=== PATIENT | female | born 1965 | race Caucasian/White ===

== ENCOUNTER 2020-02-09 08:57 | Outpatient (REF) | payer OTHER, SELFPAY ==
--- NOTE | 2020-02-09 09:02 | MM_ITS ---
EXAMINATION: MM SCREENING DIGITAL BREAST TOMOSYNTHESIS, BILATERAL CLINICAL INFORMATION: Screening. Asymptomatic. The lifetime risk of breast cancer based on the Tyrer-Cuzick Model is 11%. COMPARISON: Mammography: 02/03/2019, 12/30/2017, 12/04/2016; MR breasts 07/13/2018. TECHNIQUE: Digital breast tomosynthesis is performed in both the craniocaudal and mediolateral oblique views along with computer-aided detection (CAD). Synthesized 2D images are generated from the tomosynthesis. FINDINGS: There are scattered areas of fibroglandular density (ACR BI-RADS breast composition Category b). There are no significant masses, abnormal calcifications, or other abnormalities. There is a macrolobulated nodule central 9:00 right breast stable to slightly decreased since 2017. No significant changes from prior exams. MM/MM tomosynthesis screening BI IMPRESSION: No significant changes from prior studies. ASSESSMENT: BI-RADS 2: Benign RECOMMENDATION: Routine annual mammography screening. This patient's information was entered into a reminder system with a target due date for their next mammogram.
== END 2020-02-09 08:58 | disposition home or self-care (01) ==
LOC: HO.MAMMO 08:57
PROVIDERS: PCP Internal Medicine; Visit Provider Internal Medicine
DX: Z12.31 Encounter for screening mammogram for malignant neoplasm of breast (principal)
CPT/HCPCS: 77063; 77067

== ENCOUNTER 2021-02-13 15:10 | Outpatient (REF) | payer OTHER, SELFPAY ==
--- NOTE | ~2021-02-13 | MM_ITS ---
EXAMINATION: MM SCREENING DIGITAL BREAST TOMOSYNTHESIS, BILATERAL CLINICAL INFORMATION: Screening. Asymptomatic. The lifetime risk of breast cancer based on the Tyrer-Cuzick Model is 17.2%. COMPARISON: Mammography: February 09, 2020 and studies dating back to November 13, 2015 TECHNIQUE: Digital breast tomosynthesis is performed in both the craniocaudal and mediolateral oblique views along with computer-aided detection (CAD). Synthesized 2D images are generated from the tomosynthesis. FINDINGS: There are scattered areas of fibroglandular density (ACR BI-RADS breast composition Category b). There are no significant masses, abnormal calcifications, or other abnormalities. MM/MM tomosynthesis screening BI IMPRESSION: There are no significant changes from prior study. ASSESSMENT: BI-RADS 1: Negative RECOMMENDATION: Routine annual mammography screening. This patient's information was entered into a reminder system with a target due date for their next mammogram.
== END 2021-02-13 15:11 | disposition home or self-care (01) ==
LOC: HO.MAMMO 15:10
PROVIDERS: PCP Internal Medicine; Visit Provider Internal Medicine
DX: Z12.31 Encounter for screening mammogram for malignant neoplasm of breast (principal)
CPT/HCPCS: 77063; 77067

== ENCOUNTER 2022-02-24 09:10 | Outpatient (REF) | payer BC, SELFPAY ==
--- NOTE | ~2022-02-24 | MM_ITS ---
EXAMINATION: MM SCREENING DIGITAL BREAST TOMOSYNTHESIS, BILATERAL CLINICAL INFORMATION: Screening. Asymptomatic. The lifetime risk of breast cancer based on the Tyrer-Cuzick Model is 19.7%. COMPARISON: Mammography: February 13, 2021 and studies dating back to February 12, 2016 TECHNIQUE: Digital breast tomosynthesis is performed in both the craniocaudal and mediolateral oblique views along with computer-aided detection (CAD). Synthesized 2D images are generated from the tomosynthesis. FINDINGS: The breasts are almost entirely fatty (ACR BI-RADS breast composition Category a). There are no significant masses, abnormal calcifications, or other abnormalities. MM/MM tomosynthesis screening BI IMPRESSION: No significant changes from prior exam. ASSESSMENT: BI-RADS 1: Negative RECOMMENDATION: Routine annual mammography screening. This patient's information was entered into a reminder system with a target due date for their next mammogram.
== END 2022-02-24 09:11 | disposition home or self-care (01) ==
LOC: HO.MAMMO 09:10
PROVIDERS: PCP Internal Medicine; Visit Provider Internal Medicine
DX: Z12.31 Encounter for screening mammogram for malignant neoplasm of breast (principal)
CPT/HCPCS: 77063; 77067

== ENCOUNTER → 2022-03-09 15:50 | Outpatient (BNVA) | payer BC, SELFPAY | PROVIDERS: PCP Internal Medicine; Visit Provider Surgery | DX: Z13.89 Encounter for screening for other disorder (principal) ==

== ENCOUNTER → 2022-04-22 09:04 | Outpatient (BNVA) | payer BC, SELFPAY | PROVIDERS: PCP Internal Medicine; Visit Provider Surgery | DX: Z13.89 Encounter for screening for other disorder (principal) ==

== ENCOUNTER 2023-03-11 15:46 | Outpatient (REF) | payer OTHER, SELFPAY | END 2023-03-11 15:47 | disposition home or self-care (01) | LOC: HO.MAMMO 15:46 | PROVIDERS: PCP Student in an Organized Health Care Education/Training Program; Visit Provider Student in an Organized Health Care Education/Training Program | DX: Z12.31 Encounter for screening mammogram for malignant neoplasm of breast (principal) | CPT/HCPCS: 77063; 77067 ==

== ENCOUNTER → 2023-03-11 16:00 | Outpatient (BNV) | payer OTHER, SELFPAY | PROVIDERS: PCP Student in an Organized Health Care Education/Training Program; Visit Provider Radiology Diagnostic Radiology | DX: Z12.31 Encounter for screening mammogram for malignant neoplasm of breast (principal) | CPT/HCPCS: 77063; 77067 ==

== ENCOUNTER 2024-03-27 13:57 | Outpatient (REF) | payer OTHER, SELFPAY ==
--- OUTSIDE RECORDS SUMMARY | 2024-03-27 18:30 | XMS_ITS ---
Author Organization [facility] Address [address] [place] [address] Care Team Providers Care In House Cra Name Role Phone Luciana Ibarra Primary Care Provider Unavail able Elvis Prakash Unavailable [phone] Steffi Horton Unavailable [phone] Allergies Allergen (clinical drug ingredient) Drug/Non Drug Allergy documented on EMR Reaction Allergy Type Onset Date Status sulfamethoxazole / trimethoprim Bactrim rash, hives Drug Allergy Active Adhesive rash Allergy Active codeine Codeine nausea and vomiting Drug Allergy Active Penicillin rash, hives Drug Allergy Acti ve vibegron Gemtesa red face Drug Allergy Active REASON FOR VISIT PCP - 11/2022, Painful Toe(s) Medications Medication SIG (Take, Route, Frequency, Duration) Notes Start Date End Date Status Omeprazole 20 MG 1 capsule Orally Onc e a day Active Trospium Chloride ER 60 MG Oral for 30 Days Active Aspir-81 81 MG 1 tablet Orally Once a day Unknown ProAir HFA Unknown Doxycycline Monohydrate 100 MG 1 capsule Orally Twice a day for 5 days 01/19/2023 Active flonase 50 mcg/act A ctive Glucosamine Chond Complex/MSM - Orally Unknown Social History Tobacco Use: Social History Observation Description Date Details (start date - stop date) Never Smoker NA - NA Tobacco Use/Smoking Question Answer Notes Are you a: nonsmoker Additional Findings: Tobacco Non-User Current no n-smoker Alcohol Screen Question Answer Notes Did you have a drink contain ing alcohol in the past year? Yes How often did you have a dri nk containing alcohol in the past year? Monthly or less (1 point) Points 1 Interpretation Negative Tobacco use other than smoking: Question Answer Notes Are you an other tobacco user? No Vital Signs Blood pressure systolic 110 mm Hg 01/27/20 23 Blood pressure diastolic 70 mm Hg 023 Height 5ft 4in in 01/26/2023 Weight 232 lbs 01/26/2023 BMI 39.82 kg/m2 01/26/2023 Encounters Encounter Location Date Provider Diagnosis [facility] [address] [place] [address] 01/26/2023 Steffi Horton Contracture of toe of right foot M20.5X1 Assessments Encounter Date Diagnosis (ICD Code) Assessment Notes Treatment Notes Treatment Clinical Notes Section Notes 01/26/2023 Contracture of toe of right foot (ICD-10 - M20.5X1) Plan Of Treatment Next Appt Details Follow Up: prn, Reason: Procedure Notes * Category Sub-Category Detail Notes Dressing Change: Type: bandaide Topical: bacitacin applied Removal of: sutures performed wi th sterile forceps/suture scissors or #15 blade, area cleaned with alcohol prior to removal Progress Notes * Danika CABRERA MDOB: [birth year] (57 yo F)Acc No.[id number]:01/26/2023 Patient:?Danika Cabrera M Provider:?Steffi Horton DPM :1965???Age:57 Y???Sex:Female D ate:01/26/2023 Address:[address] [place] [id number] Pcp:Luciana Norris Subjective: * Chief Complaints: * ???PCP - ainful Toe( s) * HPI: ???Toe pain:?Treatments:?Extensor tenotomy.? * ROS:?General/Constitutional:?Nausea?denies.?Vomiting?denies.?Hunger Thirst?denies.?Loss appetite?denies.?Chills?denies.?Fatigue?denies.?Fever?denies.?Night Sweats?denies.?Unexplained weight loss?denies.?Unexplained weight gain?denies.?HEENTM:?Dentures?denies.?Dizziness?denies.?Glasses/contacts?admits.?Retinopathy?de nies.?Blurred/double vision?denies.?TMJ?denies.?Discharge/drainage?denies.?Implants?denies.?Sore throat?denies.?Dental implants?denies.?Hard of hearing ?denies.?Difficulty chewing/swallowing/speaking?denies.?Nose bleeds?denies.?Sore mouth?denies.?Respiratory:?On Oxygen?denies.?Pneumonia/pleurisy?denies.?Bronchitis?denies.?Emphysema?denies.?C oughing?denies.?Cough blood?denies.?Shortness of breath?denies.?Wheezing?denies.?Cardiovascular:?Pacemaker?denies.?MVP?denies.?WPW?denies.?CHF?denies.?Heart attack?denies.?Septal defect?denies.?Rapid beat?denies.?Chest pain ?denies.?Atrial Fib.?denies.?Murmur/Palpitations?denies.?Gastrointestinal:?Hemorrhoids?denies.?Stomach/Abdominal pain?denies.?Dark blood stool?denies.?Irritable bowel ?denies.?Constipation?denies.?Diarrhea?denies.?Hematology:?Swelling?denies.?Clots?denies.?Varicose Veins?admits.?Bruising?denies.?Bleeding problem?denies.?Genitourinary:?Blood urine?denies.?Frequent/Painfu/urination/bladder control?denies.?Kidney stones?denies.?Infection (UTI)?denies.?Nephropathy?denies.?sex trans dis (STD)?denies.?Prostate?denies.?Musculoskeletal:?Hammertoes?admits.?Bunions?denies.?Back Pain?admits.?Muscle Cramps/ Resting?denies.?Muscle cramps / walking?denies.?Generalized aches and pains?denies.?Weakness?denies.?Integ.:?Mitchell?denies.?Scars?admits.?Corns/calluses?denies.?Ingrown nails?denies.?Painful nails?denies.?Open Sores?denies.?Rashes?denies.?Neurologic:?Difficulty sleeping?denies.?Brain disorder?denies.?Numbness?denies.?Balance trouble?denies.?Confusion?denies.?Fainting/blackouts?denies.?Tingling?denies.?Tr emors?denies.? * Medical History:? * Surgical History:?cholecyste ctomy 2001ankle surgery- Left, due to Fracture 05/2010removal of pins to left ankle 2011dilatation of esophagas gall bladder right knee replacement 08/14/2021left knee replacement 09/24/2021rthroscopic knee surgery 06/30/22 * Hospitalization/Major Diagno stic Procedure:?childbirth x2 * Family History:?Mother: dece ased, diagnosed with Other malignant neoplasm of unspecified site.?Father: , stroke, diagnosed with Family history of arthritis, Unspecified essential hypertension. Siblings: Heart attack, diagnosed with Other malignant neoplasm of unspecified site.?Spouse: alive.? * Social History:?Tobacco Use:?Tobacco Use/Smoking?Are you a:?nonsmoker ?Additional Findings: Tobacco Non-User?Current non-smoker ?Tobacco use other than smoking?Are you an other tobacco user??No ???Drugs/Alcohol:?Drugs?Have you used drugs other than those for medical reasons in the past 12 months??No ?Alcohol Screen?Did you have a drink containing alcohol in the past year??Yes ?How often did you have a drink containing alcohol in the past year??Monthly or less (1 point) ?Points?1 ?Interpretation?Negative ???Miscellaneous:?Caffeine: yes, 2-3 cups per day tea. ?Children: yes, 2. ?Exercise: yes, bike riding, swimming, walking. ?Living with: spouse. ?Marital status: . 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 * Medications:?Takingflonase 5 0 mcg/act nasal spray Trospium Chloride ER 60 MG Capsule Extended Release 24 Hour Oral Omeprazole 20 MG Capsule Delayed Release 1 capsule Orally Once a dayDoxycycline Monohydrate 100 MG Capsule 1 capsule Orally Twice a dayTaking flonase 50 mcg/act nasal spray Taking Trospium Chloride ER 60 MG Capsule Extended Release 24 Hour Oral Taking Omeprazole 20 MG Capsule Delayed Release 1 capsule Orally Once a dayTaking Doxycycline Monohydrate 100 MG Capsule 1 capsule Orally Twice a dayUnknownProAir HFA Aspir-81 81 MG Tablet Delayed Release 1 tablet Orally Once a dayGlucosamine Chond Complex/MSM - Tablet Orally Medication List reviewed and reconciled with the patientUnknown ProAir HFA Unknown Aspir-81 81 MG Tablet Delayed Release 1 tablet Orally Once a dayUnknown Glucosamine Chond Complex/MSM - Tablet Orally Medication List reviewed and reconciled with the patient * Allergies:?Gemtesa: red face Penicillin: rash, hives - AllergyBactrim: rash, hives - AllergyCodeine: nausea and vomiting - AllergyAdhesive: rash - Allergyyes[Allergies Verified] Objective: * Vitals:?Ht: 5ft 4in, Wt:232, BMI:39.82, Shoe size: 9.5, BP:110/70 mm Hg, Ht-cm: 162.56 cm, Wt-k.23 kg. * Examination: ???Orthopedic: ?DIGITAL DEFORMITIES:?NO FURTHER,MPJ Contracture/Dorsal sublux. NOW WELL REDUCED with MPJ? in rectus position with push up test, incision site, healed 2nd right.? Assessment: * Assessment: 1.?Contracture of toe of rig ht foot - M20.5X1 (Primary)? Plan: * Treatment: * Procedures:?Dressing Change::?Type:?bandaide.?Topical:?bacitacin applied.?Removal of:?sutures performed with sterile forceps/suture scissors or #15 blade, area cleaned with alcohol prior to removal.? * Procedure Codes:? * Preventive Medicine:? ??Counseling:?Post-op:?I reviewed with the patient the usual surgical post-op course. The patient is to call with any questions/complications, and will follow-up as needed, return to accom firm-soled shoe for stability and support, gradually increase activity to tolerance, Pt can begin showering per usual starting tomorrow, can apply abx ointment to incisions to help with scarring, Pt to continue to ice and elevate foot to help with post op swelling and pain.? * Follow Up:?prn * Images: * Sign off status: Completed true * Provider:?Steffi Horton DPM Date:? Generated for Stew mccabe/Moiz/Vilma on:?03/27/2024 06:30 PM EST History and Physical Notes * HPI (History of Present Illness) Category Sub-Category Detail Notes Category Not es Toe pain Treatments: Extensor tenotomy Examination Category Sub-Category Detail Notes Category Not es Orthopedic DIGITAL DEFORMITIES: NO FURTHER, MPJ Contracture/Dorsal sublux. NOW WELL REDUCED with MPJ in rectus position with push up test, incision site, healed 2nd right
--- OUTSIDE RECORDS SUMMARY | 2024-03-27 18:30 | XMS_ITS | Continuity of Care Document ---
Author Organization [facility] Address [address] [place] [address] Phone Care Team Providers Care Counter Stacker Name Role Phone Stew PETERSON, RVT, RPVI, Javier Unavailable U navailable Allergies, Adverse Reactions, Alerts Substance Reaction Status Criticality vibegron Active No Information codeine Active No Information Sulfa (Sulfonamide Antibiotics) Active No Information PENICILLIN Active No Information Procedures Procedure Date Office/Outpt E&M Established 15 Mins Apr Duplex Scan-extrem Veins; Comp 24 Duplex Scan-extrem Veins; Uni/ 24 Inj Scleros Solut; Mx Veins 1 4 Ultrason Guidan Needle Bx-rad 4 Duplex Scan-extrem Veins; / 24 Endovenous Laser, 1st Vein Endovenous Laser, 1st Vein Duplex Scan-extrem Veins; Uni/ 24 Duplex Scan-extrem Veins; Uni/ 24 Inj Scleros Solut; Mx Veins 1 4 Ultrason Guidan Needle Bx-rad 4 Duplex Scan-extrem Veins; Uni/ 24 Endovenous Laser, 1st Vein Endovenous Laser, 1st Vein Offic/outpt E&m Estab 5 Min Trial - Tele medicine Offic Cons New/estab Mod-hi 60 Duplex Scan-extrem Veins; Comp Advance Directives Directive Yes / No Effective Date File Name No Information Encounters Encounter Description Practice Location Reason(s) For Visit Diagnoses Date Provider Providers Copied on Encounter Office/Outpt E&M Established 15 Mins [facility] MD [facility], [address] [place] [address] Dr Abbasi [address], [id number], [place] tel:[phone] [place] Venous insufficiency (chronic) (peripheral) 4 Stew PETERSON RVT, JON Herrera. [address] [place] [address], [address], [place], [id number], [place]. tel:[phone] Referring Provider: Miguel Bustos PA-C, [address] [place] [address] [address], [place], [address]. tel:[phone] [facility] MD [place], [address] [place] [address] Dr Abbasi [address], [place], [id number], [place] tel:[phone] [facility] Chronic venous hypertension (idiopathic) with other complications of bilateral lower extremity 4 Stew PETERSON RVT, JON Herrera. [address] [place] [address], [address], [place], [id number], [place]. tel:[phone] Referring Provider: Miguel Bustos PA-C, [address] [place] [address] [address], [place], [address]. tel:[phone] [facility] MD [place], [address] [place] [address] Dr Abbasi [address], [id number], [place] tel:[phone] [place] Encounter for follow-up examination after completed treatment for conditions other than malignant neVaricose veins of left lower extremity with pain 4 Stew PETERSON RVT, JON Herrera. [address] [place] [address], [address], [place], [id number], [place]. tel:[phone] Referring Provider: Miguel Bustos PA-C, [address] [place] [address] [address], [place], [address]. tel:[phone] [facility] MD [place], [address] [place] [address] Dr Abbasi [address], [id number], [place] tel:[phone] [place] - [place] Varicose veins of left lower extremity with other complications 4 Peter Pereira. [address] [facility] [address], [place], [id number], [place]. tel:[phone] Referring Provider: Miguel Bustos PA-C, [address] [place] [address] [address], [place], [address]. tel:[phone] [facility] MD [place], [address] [place] [address] Dr Abbasi [address], [id number], [place] tel:[phone] [place] Encounter for follow-up examination after completed treatment for conditions other than malignant neChronic venous hypertension (idiopathic) with other complications of left lower extremity 4 Stew PETERSON RVT, JNO Herrera. [facility] [employer] [address], [place], [id number], [place]. tel:[phone] Referring Provider: Miguel Bustos PA-C, [address] [place] [address] [address], [place], [address]. tel:[phone] [facility] MD [place], [address] [place] [address] Dr Ababsi 1000Suite Jeana Vo MD, [id number], [place] tel:[phone] [place] Varicose veins of left lower extremity with other complications 4 Stew PETERSON RVT, JON Herrera. [address] [place] [address] [address], [place], [id number], [place]. tel:[phone] Referring Provider: Miguel Bustos PA-C, [address] [place] [address] [address], [place], [address]. tel:[phone] [facility] MD [place], [address] [place] [address] Dr Abbasi 1000[address]Jeana [place], [id number], [place] tel:[phone] [place] Varicose veins of left lower extremity with other complications 4 Stew PETERSON RVT, JON Herrera. [facility], [address], [place], [id number], [place]. tel:[phone] Referring Provider: Miguel Bustos PA-C, [address] [place] [address] [address], [place], [address]. tel:[phone] [facility], [address] [place] [address] 1000[address] 1000Jeana [place], [id number], [place] tel:[phone] [place] Encounter for follow-up examination after completed treatment for conditions other than malignant neChronic venous hypertension (idiopathic) with other complications of right lower extremity 4 Stew PETERSON RVT, JON Herrera. [address] [place] [address], [address], [place], [id number], [place]. tel:[phone] Referring Provider: Miguel Bustos PA-C, [address] [place] [address] [address], [place], [address]. tel:[phone] [facility], [address] [place] [address] 1000[address] 1000Jeana [place], [id number], [place] tel:[phone] [place] No Information 4 Robert Sousa. [address] [place] [address], [address], [place], [address], [place]. tel:[phone] Referring Provider: Miguel Bustos PA-C, [address] [place] [address] [address], [place], [address]. tel:[phone] [facility], [address] [place] [address] 1000[address] 1000Jeana [place], [id number], [place] tel:[phone] [place] Encounter for follow-up examination after completed treatment for conditions other than malignant neVaricose veins of right lower extremity with pain 4 Stew PETERSON RVT, RPVI Robert. [address] [place] [address] 302, [place], [id number], [place]. tel:[phone] Referring Provider: Miguel Bustos PA-C, [address] [place] [address] [address], [place], [address]. tel:[phone] [facility], [address] [place] [address] 1000[address] 1000Jeana [place], [id number], [place] tel:[phone] [place] Varicose veins of right lower extremity with other complications 4 Stew PETERSON RVT, JON Herrera. [address] [place] [address], [address], [place], [id number], [place]. tel:[phone] Referring Provider: Miguel Bustos PA-C, [address] [place] [address] [address], [place], [address]. tel:[phone] [facility], [address] [place] [address] 1000[address] 1000Jeana [place], [id number], [place] tel:[phone] [place] Encounter for follow-up examination after completed treatment for conditions other than malignant neVaricose veins of right lower extremity with pain 4 Stew PETERSON RVT, JON Herrera. [address] [place] [address], [address], [place], [id number], [place]. tel:[phone] Referring Provider: Miguel Bustos PA-C, [address] [place] [address] [address], [place], [address]. tel:[phone] [facility], [address] [place] [address] 1000[address] 1000Jeana [place], [id number], [place] tel:[phone] [place] Chronic venous hypertension (idiopathic) with inflammation of right lower extremity 4 Stew PETERSON RVT, JON Herrera. [address] [place] [address], [address], [place], [id number], [place]. tel:[phone] Referring Provider: Miguel Bustos PA-C, [address] [place] [address] [address], [place], [address]. tel:[phone] [facility], [address] [place] [address] [facility] [address] [address], [place], [id number], [place] tel:[phone] [place] Chronic venous hypertension (idiopathic) with inflammation of right lower extremity 4 Stew PETERSON, RVT, JON Herrera. [address] [place] [address] 302, [place], [id number], [place]. tel:[phone] Referring Provider: Miguel Bustos PA-C, [address] [place] [address] Suite [facility], [place], [address]. tel:[phone] Offic/outpt E&m Estab 5 Min Trial - Telemedicine [facility], [address] [place] [address] Dr Abbasi [address] [place], [place] [address]Je[place], [id number], [place] tel:[phone] [place] Localized edemaRestless legs syndromeVenou s insufficiency (chronic) (peripheral)P ruritus, unspecified 3 Peter Pereira. [address] [place] [address] 302, [place], [id number], [place]. tel:[phone] Referring Provider: Miguel Bustos PA-C, [address] [place] [address], [place], [address]. tel:[phone] Offic Cons New/estab Mod-hi 60 [facility], [address] [place] [address] [facility] 1000[address] 1000Jeana [place], [id number], [place] tel:[phone] [place] Varicose veins of bilateral lower extremities with other complications Pain in right lower legPain in left lower legLocalized edemaRestless legs syndromePruri tus, unspecified 3 Robert PETERSON FACS RVT JON Sousa. [address] [place] [address], [address], [place], [address], [place]. tel:[phone] Referring Provider: Miguel Bustos PA-C, [address] [place] [address] [address], [place], [address]. tel:[phone] [facility], [address], [place], [id number], [place] tel:[phone] [place] Chronic venous hypertension (idiopathic) with other complications of bilateral lower extremity Robert PETERSON FACS RVT JON Sousa. [address] [facility], [address], [place], [address], [place]. tel:[phone] Referring Provider: Miguel Bustos PA-C, [address] [facility] [address], [place], [address]. tel:[phone] Family History Family Member Type Diagnosis Age At Onset No Information Payers Payer name Insurance type Covered alliance party ID Lisa fitzgerald([employer] [facility] [id number] Social History Type Description Quantity Date Captured Comments Alcohol Use Details Unknown Caffeine Use Details Unknown Tobacco Use Status Current non-smoker Smoking Status Never Smoker Non-Smoking Tobacco Use Details : No Details Available : No Details Available Sex Female Vital Signs Date / Time: Height Weight BMI Pulse Rate Blood Pressure Temperature Respiratory Rate Body Surface Area Head Circumference Head Circ. Percentile Wt./Thomas. Percentile BMI percentile Pulse Ox Inhaled Ox 105.230 kg (232.00 lbs) 39.9 0 kg/m eter (2) 136/90 mm[Hg] Chief Complaint And Reason For Visit No Information Reason For Referral Reason For Referral No Information Plan Of Treatment Date Type Action Status Goal Diet education completed Goal Diet education completed Goal Diet education completed Goal Diet education completed Referral Ordered: Miguel Bustos PA-C timeframe: 3 Months (related to Essential (primary) hypertension) ordered Referral Ordered: Weight management: Referral to physician timeframe: 3 Months (related to Body mass index (BMI) 39.0-39.9, adult) ordered Referral Ordered: Miguel Bustos PA-C timeframe: 3 Months (related to Essential (primary) hypertension) ordered Referral Ordered: Weight management: Referral to physician timeframe: 3 Months (related to Body mass index (BMI) 39.0-39.9, adult) ordered History Of Present Illness Encounter Date Complaint History Of Prese nt Illness No Information Functional Status Date Functional Assessmen t No Information Instructions Date Instruction Additional Infor alexys Diet education Related to Essen tial (primary) hypertension Exercise education Related to Es sential (primary) hypertension Lifestyle education Related to E ssential (primary) hypertension Diet education Related to Body mass index (BMI) 39.0-39.9, adult Giving Encouragement to exercise Related to Body mass index (BMI) 39.0-39.9, adult Lifestyle education Related to B latoya mass index (BMI) 39.0-39.9, adult Patient education booklet given Related to Venous insufficiency (chronic) (peripheral) Patient education booklet given Related to Localized edema Pre and post instruc tions reviewed and provided Related to Localized edema Lifestyle education Related to E ssential (primary) hypertension Diet education Related to Body mass index (BMI) 39.0-39.9, adult Giving Encouragement to exercise Related to Body mass index (BMI) 39.0-39.9, adult Lifestyle education Related to B latoya mass index (BMI) 39.0-39.9, adult Patient education booklet given Related to Varicose veins of bilateral lower extremities with other complications Pre and post instruc tions reviewed and provided Related to Varicose veins of bilateral lower extremities with other complications Diet education Related to Essen tial (primary) hypertension Exercise education Related to Es sential (primary) hypertension Assessments Type Assessment Date No Information Patient Care Teams Name Effective Dates (start - stop) Status Members No Information
--- OUTSIDE RECORDS SUMMARY | 2024-03-27 18:30 | XMS_ITS ---
Author Organization [facility] Address [address] [place] [address] Care Team Providers Care Pharmacist Per Diem Name Role Phone Luciana Ibarra Primary Care Provider Unavail able Elvis Prakash Unavailable [phone] Steffi Horton Unavailable [phone] REASON FOR VISIT buy Med Post OP Shoe Encounters Encounter Location Date Provider Diagnosis [facility] [address] [place] [address] 01/19/2023 Steffi Horton Plan Of Treatment No Information Progress Notes * Danika CABRERA MDOB: [birth year] (57 yo F)Acc No.[id number]:01/19/2023 Patient:?Danika Cabrera :1965???Age:57 Y???Sex:Female Address:[address] [place], [address] * true * Date:? Generated for Maryjanei estelle/Moiz/eTransmitting on:?03/27/2024 06:30 PM EST
--- OUTSIDE RECORDS SUMMARY | 2024-03-27 18:30 | XMS_ITS | Patient Health Record ---
Author Organization [facility] Address [address] [facility] [place] [address] Care Team Providers Care Prototype Engineer Name Role Phone Luciana Ibarra Primary Care Provider Unavail able Elvis Prakash Unavailable [phone] Allergies Allergen (clinical drug ingredient) Drug/Non Drug Allergy documented on EMR Reaction Allergy Type Onset Date Status sulfamethoxazole / trimethoprim Bactrim rash, hives Drug Allergy Active Adhesive rash Allergy Active codeine Codeine nausea and vomiting Drug Allergy Active Penicillin rash, hives Drug Allergy Acti ve vibegron Gemtesa red face Drug Allergy Active Reason For Referral No Information Medications Medication SIG (Take, Route, Frequency, Duration) Notes Start Date End Date Status Glucosamine Chond Complex/MSM - Orally Unknown Doxycycline Monohydrate 100 MG 1 capsule Orally Twice a day for 5 days 01/19/2023 Not-Taking Omeprazole 20 MG 1 capsule Orally Onc e a day Active Aspir-81 81 MG 1 tablet Orally Once a day Unknown ProAir HFA Unknown Trospium Chloride ER 60 MG Oral for 30 Days Active flonase 50 mcg/act A ctive Social History Tobacco Use: Social History Observation Description Date Details (start date - stop date) Never Smoker NA - NA Tobacco use other than smoking: Question Answer Notes Are you an other tobacco user? No Tobacco Control (Standard) Question Answer Notes Tobacco use: Nonsmoker Additional Findings: Tobacco non-user Current no nsmoker AUDIT-C (Standard) Question Answer Notes Did you have a drink contain ing alcohol in the past year? Yes How often did you have six o r more drinks on one occasion in the past year? Never (0 point) How many drinks did you have on a typical day when you were drinking in the past year? 1 or 2 drinks (0 point) How often did you have a dri nk containing alcohol in the past year? Monthly or less (1 point) Points 1 Interpretation Negative Problems Problem Type SNOMED Code ICD Code Onset Dates Problem Status W/U Status Risk Notes Problem Acquired hammer toe of right foot (2271343059254 105) Other hammer toe(s) (acquired), right foot (M20.41) Active confirmed Problem Acquired hammer toe of left foot (3555668459792 103) Other hammer toe(s) (acquired), left foot (M20.42) Active confirmed Vital Signs Blood pressure diastolic 74 mm Hg 03/14/2024 Height 5ft 4in in 03/14/2024 Blood pressure systolic 98 mm Hg 03/14/2024 Weight 183 lbs 03/14/2024 BMI 31.41 kg/m2 03/14/2024 Encounters Encounter Location Date Provider Diagnosis [facility] [address] [place] [address] 03/14/2024 Elvis Prakash Pain in right foot M79.671 and Tailor's bunion of right foot M21.621 Assessments Encounter Date Diagnosis (ICD Code) Assessment Notes Treatment Notes Treatment Clinical Notes Section Notes 03/14/2024 Pain in right foot (ICD-10 - M79.671) 03/14/2024 Tailor's bunion of right foot (ICD-10 - M21.621) Acute problem, Uncomplicated (3) Plan Of Treatment Pending Test Test Name Order Date X ray : Foot, left 3V 10/27/2017 X ray : Foot, right 3V 11/17/2022 X ray : Foot, right 3V 10/27/2017 [id number] 12/08/2012 91351- Debride <25 sq cm 12/21/2012 50272- Debride <25 sq cm 03/31/2012 94339 I&D ABSCESS- SIMPLE,SINGLE 013 Insurance Providers Payer Name Payer Address Payer Phone Subscriber Number Group Number Insured Name Patient Relationship to Insured Coverage Start Date Coverage End Date [facility] [address] [facility] [place] [phone] [id number] Danika Can Self - patient is the insured Medical (General) History Medical History History ICD Code asthma back, hip, knee pain broken bones chicken pox Headaches/Migraines Hiatal hernia psoriasis reflux sinus conditions Pain in Limb undefined Pain in Limb Paronychia Abscess /Cellulitis Ingrowing Nail Arthritis covid-19 Gall bladder problems Reflux ( GERD) Joint implants/screws Schatzki Ring Surgical History Surgery Date(Month/Year) cholecystectomy 2000 ankle surgery- Left, due to Fracture 2010 removal of pins to left ankle 2011 dilatation of esophagas gall bladder right knee replacement 08/14/2021 left knee replacement 09/24/2021 arthroscopic knee surgery 06/30/22 Hospitalization History Reason Date(Month/Year) childbirth x2
--- OUTSIDE RECORDS SUMMARY | 2024-03-27 18:31 | XMS_ITS | Data Portability ---
Author Organization [facility], Main Office Address [address] [facility] [address] [place] [id number] Care Team Providers Care Stick Puller Name Role Phone CLEOPATRA PEREZ Baggage Checker JERED LOPEZ Fleet Maintenance Foreman LARS DE LEÓN Orthopedic Surgeon RHONDA REGALADO Referring Provider BROOKLYN TURNER General Surgeon JENY DELUCA Public Health Professor KRISTEN MILLER Primary Care Provider Assessment Encounter Date Assessment Date Assessment LastModified by Organization Details LastModified Time 04/08/2023 04/08/2023 Discussed with patient the signs/symptom s warranted for a return to office visit and/or an ER visit. Patient understood and agreed with the plan. Not available 04/08/2023 14:44:05 10/27/2023 10/27/2023 Discussed with patient the signs/symptom s warranted for a return to office visit and/or an ER visit. Patient understood and agreed with the plan. Not available 10/27/2023 14:36:31 Plan of Treatment Reminders Order Date Submit Date Provider Last Modified By Organization Details Last Modified Time Details Appointments None record ed. Lab HbA1c (hemog lobin A1c), blood 2022 023 [facility], [address] [facility], [address], [address], 16:14:36 unlist ed lab - urinal ysis w/refl ex cultur e 2022 023 MARCELO [facility], [address], [place] [address], [place], [address], 3 01:57:44 urinal ysis, dipsti ck 2022 023 MARCELO In-Office Order, Internal Use Only DO Not Attach Compendium DO Not Attach Compendium, Do Not Delete/merge, [id number] 3 10:01:08 CBC w/ auto diff 2022 023 MARCELO [facility], [address], [place] [address], [place], [address], 3 15:39:38 CMP, serum or plasma 2022 023 MARCELO [facility], [address], [place] [address], [place], [address], 3 18:31:59 urinal ysis, dipsti ck 2023 024 MARCELO In-Office Order, Internal Use Only DO Not Attach Compendium DO Not Attach Compendium, Do Not Delete/merge, [id number] 4 14:28:31 [facility] - urinal ysis w/refl ex cultur e 2023 024 MARCELO [facility], [address], [place] [address], [place], [address], 4 05:03:51 CBC w/ auto diff 2023 024 MARCELO [facility], [address] , [facility] [address], [place], [address], 4 06:09:44 TSH + free T4, serum 2023 024 MARCELO [facility], [address], [place] [address], [place], [address], 4 06:09:44 CMP, serum or plasma 2023 024 [facility], [address], [facility] [address], [place], [address], 4 06:09:45 lipid panel, serum 2023 024 [facility], [address], [facility] [address], [place], [address], 4 06:09:46 urinal ysis, dipsti ck 2023 024 In-Office Order, Internal Use Only DO Not Attach Compendium DO Not Attach Compendium, Do Not Delete/merge, [id number] 4 14:59:53 urinal ysis comple te, reflex cultur e 2023 024 [facility], [address] , [place] [address], [place], [address], 4 20:06:22 HbA1c (hemog lobin A1c), blood 2023 024 [facility], [address], [place] [address], [place], [address], 4 06:08:39 CBC 2023 024 [facility], [address], [facility] [address], [place], [address], 4 06:08:39 CMP, serum or plasma 2023 024 [facility], [address], [place] [address], [place], [address], 4 06:08:38 Referral vein specia list referr al 2022 023 [email or web address] Charu Jones MD, [address], [place] [address], [place], [address], 3 11:00:55 physic al therap ist referr al - left sided low back pain 2023 024 [facility] - [address], [address], 4 11:00:25 Procedures None record ed. Surgeries None record ed. Imaging None record ed. Medication Orders Saxend a 3 mg/0.5 mL (18 mg/3 mL) subcut aneous pen inject or 2022 023 [email or web address] [facility], [address] [place], [address], 3 09:21:48 Macrob id 100 mg capsul e 2023 024 [email or web address] [facility], [address] [place], [address], 4 09:08:17 zolpid em 5 mg tablet 2023 024 [facility], [address] [place], [address], 4 09:35:52 cephal exin 500 mg capsul e 2023 024 [email or web address] [facility]1230, [address] [place], [address], 4 14:31:37 flutic asone propio teresa 50 mcg/ac tuatio n nasal spray, suspen lynn 2023 024 [facility], [address] [place], [address], 4 09:18:14 Patient TargetsNo targets recorded. Patient Instructions Encounter Date Encounter Id Patient Instructions Last Modified By Organization Details Last Modified Time 12/24/2022 [id number] leg and ankle edema: care instructions [email or web address] Not available 12/24/2022 09:56:21 Medications (OTC , herbal therapies, supplements) reviewed and reconciled with patient and or caregiver, including potential side effects, drug interactions, instructions, and the consequences of not taking medication. Reviewed potential barriers to medication adherence, such as side effects from medication or cost of medication. [email or web address] Not available 12/24/2022 09:38:22 04/08/2023 [id number] blood in the urine: care instructions Not available 04/08/2023 14:28:55 10/27/2023 [id number] low back pain: exercises Not available 10/27/2023 14:41:10 back care and preventing injuries: care instructions Not available 10/27/2023 14:41:10 Reason for Referral Vein Specialist Referral for Peripheral venous insufficiency Referring Physician: Miguel Bustos, Internal Medicine, Encounter Date: 12/24/2022 Physical Therapist Referral for Low back pain left sided low back pain Referring Physician: Naa Modi, Family Medicine, Encounter Date: 10/27/2023 Results Created Date Observation Date Name Description Value Unit Range Abnormal Flag Note LastModifiedBy Organization Detail LastModifiedTime 12/25/1912/24/2022 COMPL ETE CBC WITH DIFF WBC 4.7 K/mm3 (4.0-1 1.0) Not Available [facility] [address] [place], [address], 12/24/2022 15:39:38 12/25/1912/24/2022 COMPL ETE CBC WITH DIFF RBC 4.80 M/mm3 (4.20- 5.40) Not Available [facility] [address] [place], [address], 12/24/2022 15:39:38 12/25/1912/24/2022 COMPL ETE CBC WITH DIFF HGB 13.5 gm/dL (11.7- 15.5) Not Available [facility] [address] [place], [address], 12/24/2022 15:39:38 12/25/1912/24/2022 COMPL ETE CBC WITH DIFF HCT 44.1 % (35.7- 45.8) Not Available [facility] [address] [place], [address], 12/24/2022 15:39:38 12/25/1912/24/2022 COMPL ETE CBC WITH DIFF MCV 91.9 fL (80.0- 100.0) Not Available [facility] [address] [place], [address], 12/24/2022 15:39:38 12/25/1912/24/2022 COMPL ETE CBC WITH DIFF MCH 28.1 pg (27.0- 34.0) Not Available [facility] [address] [place], [address], 12/24/2022 15:39:38 12/25/1912/24/2022 COMPL ETE CBC WITH DIFF MCHC 30.6 g/dL (33.0- 37.0) low Not Available [facility] [address] [place], [address], 12/24/2022 15:39:38 12/25/1912/24/2022 COMPL ETE CBC WITH DIFF plt 391 K/mm3 (150-4 60) Not Available [facility] [address] [place], [address], 12/24/2022 15:39:38 12/25/1912/24/2022 COMPL ETE CBC WITH DIFF RDW-SD 47.9 fL (<47.0 ) high Not Available [facility] [address] [place], [address], 12/24/2022 15:39:38 12/25/1912/24/2022 COMPL ETE CBC WITH DIFF MPV 9.4 fL (9.4-1 2.4) Not Available [facility] [address] [place], [address], 12/24/2022 15:39:38 12/25/19 23 12/24/2022 COMPL ETE CBC WITH DIFF automated NRBC 0.0 #/100 _WBC' s Not Available [facility] [address] [place], [address], 12/24/2022 15:39:38 12/25/1912/24/2022 COMPL ETE CBC WITH DIFF abs. NRBC 0.0 K/mm3 Not Available [facility] [address] [place], [address], 12/24/2022 15:39:38 12/25/1912/24/2022 COMPL ETE CBC WITH DIFF neut # 2.6 K/mm3 (1.3-7 .0) Not Available [facility] [address] [place], [address], 12/24/2022 15:39:38 12/25/19 23 12/24/2022 COMPL ETE CBC WITH DIFF lymph # 1.6 K/mm3 (0.8-3 .1) Not Available [facility] [address] [place], [address], 12/24/2022 15:39:38 12/25/19 23 12/24/2022 COMPL ETE CBC WITH DIFF mono# 0.3 K/mm3 (0.4-0 .9) low Not Available [facility] [address] [place], [address], 12/24/2022 15:39:38 12/25/19 23 12/24/2022 COMPL ETE CBC WITH DIFF eo # 0.1 K/mm3 (0.0-0 .4) Not Available [facility] [address] [place], [address], 12/24/2022 15:39:38 12/25/19 23 12/24/2022 COMPL ETE CBC WITH DIFF baso # 0.1 K/mm3 (0.0-0 .1) Not Available [facility] [address] [place], [address], 12/24/2022 15:39:38 12/25/1912/24/2022 COMPL ETE CBC WITH DIFF abs. imm gran 0.0 K/mm3 Not Available [facility] [address] [place], [address], 12/24/2022 15:39:38 12/25/1912/24/2022 COMPL ETE CBC WITH DIFF neut 55.7 % (44-76 ) Not Available [facility] [address] [place], [address], 12/24/2022 15:39:38 12/25/1912/24/2022 COMPL ETE CBC WITH DIFF lymph 34.2 % (15-43 ) Not Available [facility] [address] [place], [address], 12/24/2022 15:39:38 12/25/1912/24/2022 COMPL ETE CBC WITH DIFF monocyte 6.7 % (4.5-1 0.5) Not Available [facility] [address] [place], [address], 12/24/2022 15:39:38 12/25/1912/24/2022 COMPL ETE CBC WITH DIFF eo 1.9 % (0-6) Not Available [facility] [address] [place], [address], 12/24/2022 15:39:38 12/25/1912/24/2022 COMPL ETE CBC WITH DIFF baso 1.3 % (0-2) Not Available [facility] [address] [place], [address], 12/24/2022 15:39:38 12/25/1912/24/2022 COMPL ETE CBC WITH DIFF imm gran 0.2 % Not Available [facility] [address] [place], [address], 12/24/2022 15:39:38 12/25/1912/24/2022 HEMOG LOBIN A1C hemoglobin A1C 5.5 % (4.0-5 .6) MONIT ORING : In known diabe tic patie nts, hemog lobin A1c targe ts shoul d be discu ssed with healt h care provi carol. DIAGN OSTIC USE: The Ameri can Diabe tracy Assoc iatio n (ADA) and the World Healt h Organ izati on (WHO) recom mend the use of HbA1c to diagn ose diabe tracy using a thres hold of 6.5%. Patie nts who have an HbA1c betwe en 5.7% and 6.4% are consi dered at incre ased risk for devel oping diabe tracy in the futur e. CAUTI ON: False ly low HbA1c resul ts may be obser brandon in patie nts with hemol ytic anemi a, homoz ygous forms of abnor mal hemog lobin (e.g. SS, CC, SC), pregn zander, recen t blood loss or hemog lobin F great er than 7%. Fruct osami ne may be used as an alter teresa test in these cases . REFER ENCE: ADA: Stand ards of Medic al Care in Diabe tracy 2019, The Journ al of Clini tyler and Appli ed Resea [facility] and Educa tion Volum e 43, Suppl ement 1 Not Available [facility] [address] [place], [address], 12/24/2022 16:14:36 12/25/19 23 12/24/2022 COMPR EHENS TAMERA METAB OLIC PANL glucose 101 mg/dL (70-99 ) high Not Available [facility] [address] [place], [address], 12/24/2022 18:31:59 12/25/19 23 12/24/2022 COMPR EHENS TAMERA METAB OLIC PANL BUN 10 mg/dL (6-20) Not Available [facility] [address] [place], [address], 12/24/2022 18:31:59 12/25/1912/24/2022 COMPR EHENS TAMERA METAB OLIC PANL creatinine 0.8 mg/dL (0.5-1 .0) Not Available [facility] [address] [place], [address], 12/24/2022 18:31:59 12/25/1912/24/2022 COMPR EHENS TAMERA METAB OLIC PANL sodium 139 mmol/ L (133-1 45) Not Available [facility] [address] [place], [address], 12/24/2022 18:31:59 12/25/1912/24/2022 COMPR EHENS TAMERA METAB OLIC PANL potassium 4.7 mmol/ L (3.6-5 .2) Not Available [facility] [address] [place], [address], 12/24/2022 18:31:59 12/25/1912/24/2022 COMPR EHENS TAMERA METAB OLIC PANL chloride 103 mmol/ L (98-10 7) Not Available [facility] [address] [place], [address], 12/24/2022 18:31:59 12/25/1912/24/2022 COMPR EHENS TAMERA METAB OLIC PANL bicarbonate 27 mmol/ L (22-29 ) Not Available [facility] [address] [place], [address], 12/24/2022 18:31:59 12/25/1912/24/2022 COMPR EHENS TAMERA METAB OLIC PANL anion gap 9 (4-17) Not Available [facility] [address] [place], [address], 12/24/2022 18:31:59 12/25/1912/24/2022 COMPR EHENS TAMERA METAB OLIC PANL albumin 4.5 gm/dL (3.4-4 .8) Not Available [facility] [address] [place], [address], 12/24/2022 18:31:59 12/25/19 23 12/24/2022 COMPR EHENS TAMERA METAB OLIC PANL calcium 9.9 mg/dL (8.6-1 0.5) Not Available [facility] [address] [place], [address], 12/24/2022 18:31:59 12/25/1912/24/2022 COMPR EHENS TAMERA METAB OLIC PANL bilirubin,to paras 0.2 mg/dL (0-1.2 ) Not Available [facility] [address] [place], [address], 12/24/2022 18:31:59 12/25/1912/24/2022 COMPR EHENS TAMERA METAB OLIC PANL total protein 6.7 gm/dL (6.2-8 .2) Not Available [facility] [address] [place], [address], 12/24/2022 18:31:59 12/25/1912/24/2022 COMPR EHENS TAMERA METAB OLIC PANL Ag ratio 2.0 Not Available [facility] [address] [place], [address], 12/24/2022 18:31:59 12/25/19 23 12/24/2022 COMPR EHENS TAMERA METAB OLIC PANL AST 18 U/L (0-32) Not Available [facility] [address] [place], [address], 12/24/2022 18:31:59 12/25/19 23 12/24/2022 COMPR EHENS TAMERA METAB OLIC PANL alk phos 121 U/L (35-10 4) high Not Available [facility] [address] [place], [address], 12/24/2022 18:31:59 12/25/19 23 12/24/2022 COMPR EHENS TAMERA METAB OLIC PANL ALT 13 U/L (0-33) Not Available [facility] [address] [place], [address], 12/24/2022 18:31:59 12/25/1912/24/2022 COMPR EHENS TAMERA METAB OLIC PANL estimated GFR creatinine 80 mL/mi n/1.7 3_M2 Creat inine based estim ated glome rular filtr ation (eGFR ) in adult s is calcu lated using the Natio nal Kidne y Found ation recom lisa d 2020 CKD-E PI equat ion. Estim ates GFR from serum creat inine , age and sex. Not Available [facility] [address] [place], [address], 12/24/2022 18:31:59 12/25/1912/25/2022 UA W/REF GLEN CULTU RE appear/color COLOR LESS CLEAR Not Available [facility] [address] [place], [address], 12/25/2022 01:57:42 12/25/1912/25/2022 UA W/REF GLEN CULTU RE sp. gravity 1.010 (1.002 -1.030 ) Not Available [facility] [address] [place], [address], 12/25/2022 01:57:42 12/25/1912/25/2022 UA W/REF GLEN CULTU RE urine pH 6.5 (5.0-8 .0) Not Available [facility] [address] [place], [address], 12/25/2022 01:57:42 12/25/1912/25/2022 UA W/REF GLEN CULTU RE urine albumin NEGATI VE (neg) Not Available [facility] [address] [place], [address], 12/25/2022 01:57:42 12/25/1912/25/2022 UA W/REF GLEN CULTU RE urine glucose NEGATI VE (neg) Not Available [facility] [address] [place], [address], 12/25/2022 01:57:42 12/25/1912/25/2022 UA W/REF GLEN CULTU RE urine ketones NEGATI VE (neg) Not Available [facility] [address] [place], [address], 12/25/2022 01:57:42 12/25/1912/25/2022 UA W/REF GLEN CULTU RE urine bilirubin NEGATI VE (neg) Not Available [facility] [address] [place], [address], 12/25/2022 01:57:42 12/25/1912/25/2022 UA W/REF GLEN CULTU RE urine hemoglobin NEGATI VE (neg) Not Available [facility] [address], [address], 12/25/2022 01:57:42 12/25/1912/25/2022 UA W/REF GLEN CULTU RE urine nitrite NEGATI VE (neg) Not Available [facility] [address], [address], 12/25/2022 01:57:42 12/25/1912/25/2022 UA W/REF GLEN CULTU RE urine leukocyte NEGATI VE (neg) Not Available [facility] [address], [address], 12/25/2022 01:57:42 12/25/1912/25/2022 UA W/REF GLEN CULTU RE urobilinogen NORMAL mg/dL (norm) Not Available [facility] [address] [place], [address], 12/25/2022 01:57:42 12/25/1912/25/2022 UA W/REF GLEN CULTU RE urine WBCs <1 /hpf (0-5) Not Available [facility] [address] [place], [address], 12/25/2022 01:57:42 12/25/1912/25/2022 UA W/REF GLEN CULTU RE urine RBCs 1 /hpf (0-3) Not Available [facility] [address] [place], [address], 12/25/2022 01:57:42 12/25/1912/25/2022 UA W/REF GLEN CULTU RE mucus SLIGHT /lpf Not Available [facility] [address] [place], [address], 12/25/2022 01:57:42 12/25/19 23 12/25/2022 UA W/REF GLEN CULTU RE squamous epith <1 /hpf (0-8) Not Available [facility] [address] [place], [address], 12/25/2022 01:57:42 12/25/1912/25/2022 UA W/REF GLEN CULTU RE clarity CLEAR (clear ) Not Available [facility] [address] [place], [address], 12/25/2022 01:57:42 12/25/1912/25/2022 UA W/REF GLEN CULTU RE culture indication CULTUR E NOT INDICA DENIS Not Available [facility] [address] [place], [address], 12/25/2022 01:57:42 12/25/1912/24/2022 urina lysis , dipst ick Leukocytes Negati ve Not Available In-Office Order Internal Use Only DO Not Attach Compendium DO Not Attach Compendium, Do Not Delete/merge, [id number] 12/24/2022 09:47:31 12/25/1912/24/2022 urina lysis , dipst ick Nitritie negati ve Not Available In-Office Order Internal Use Only DO Not Attach Compendium DO Not Attach Compendium, Do Not Delete/merge, [id number] 12/24/2022 09:47:31 12/25/1912/24/2022 urina lysis , dipst ick Urobilinogen .2 Not Available In-Of fice Order Internal Use Only DO Not Attach Compendium DO Not Attach Compendium, Do Not Delete/merge, [id number] 12/24/2022 09:47:31 12/25/1912/24/2022 urina lysis , dipst ick Protein Negati ve Not Available In-Office Order Internal Use Only DO Not Attach Compendium DO Not Attach Compendium, Do Not Delete/merge, [id number] 12/24/2022 09:47:31 12/25/1912/24/2022 urina lysis , dipst ick pH 6.0 Not Available In-Office Order Internal Use Only DO Not Attach Compendium DO Not Attach Compendium, Do Not Delete/merge, [id number] 12/24/2022 09:47:31 12/25/1912/24/2022 urina lysis , dipst ick Blood Negati ve Not Available In-Office Order Internal Use Only DO Not Attach Compendium DO Not Attach Compendium, Do Not Delete/merge, [id number] 12/24/2022 09:47:31 12/25/1912/24/2022 urina lysis , dipst ick Specific [place] 1.010 Not Available In-Off ice Order Internal Use Only DO Not Attach Compendium DO Not Attach Compendium, Do Not Delete/merge, [id number] 12/24/2022 09:47:31 12/25/1912/24/2022 urina lysis , dipst ick Ketone Negati ve Not Available In-Office Order Internal Use Only DO Not Attach Compendium DO Not Attach Compendium, Do Not Delete/merge, [id number] 12/24/2022 09:47:31 12/25/1912/24/2022 urina lysis , dipst ick Bilirubin Negati ve Not Available In-Office Order Internal Use Only DO Not Attach Compendium DO Not Attach Compendium, Do Not Delete/merge, [id number] 12/24/2022 09:47:31 12/25/1912/24/2022 urina lysis , dipst ick Glucose Negati ve Not Available In-Office Order Internal Use Only DO Not Attach Compendium DO Not Attach Compendium, Do Not Delete/merge, [id number] 12/24/2022 09:47:31 12/25/19 23 12/24/2022 urina lysis , dipst ick Appearance Clear Not Available In-Offi ce Order Internal Use Only DO Not Attach Compendium DO Not Attach Compendium, Do Not Delete/merge, [id number] 12/24/2022 09:47:31 12/25/19 23 12/24/2022 urina lysis , dipst ick Color Pale Yellow Not Available In-Office Order Internal Use Only DO Not Attach Compendium DO Not Attach Compendium, Do Not Delete/merge, [id number] 12/24/2022 09:47:31 04/08/19 24 04/09/2023 UA W/REF GLEN CULTU RE appear/color LIGHT YELLO W TURBI D Not Available [facility] [address] [place], [address], 04/09/2023 05:03:51 04/08/19 24 04/09/2023 UA W/REF GLEN CULTU RE sp. gravity 1.008 (1.002 -1.030 ) Not Available [facility] [address] [place], [address], 04/09/2023 05:03:51 04/08/19 24 04/09/2023 UA W/REF GLEN CULTU RE urine pH 6.5 (5.0-8 .0) Not Available [facility] [address] [place], [address], 04/09/2023 05:03:51 04/08/19 24 04/09/2023 UA W/REF GLEN CULTU RE urine albumin TRACE (neg) abnormal Not Available [facility] [address] [place], [address], 04/09/2023 05:03:51 04/08/19 24 04/09/2023 UA W/REF GLEN CULTU RE urine glucose NEGATI VE (neg) Not Available [facility] [address] [place], [address], 04/09/2023 05:03:51 04/08/19 24 04/09/2023 UA W/REF GLEN CULTU RE urine ketones NEGATI VE (neg) Not Available [facility] [address] [place], [address], 04/09/2023 05:03:51 04/08/19 24 04/09/2023 UA W/REF GLEN CULTU RE urine bilirubin NEGATI VE (neg) Not Available [facility] [address] [place], [address], 04/09/2023 05:03:51 04/08/19 24 04/09/2023 UA W/REF GLEN CULTU RE urine hemoglobin 3+ (neg) abnormal Not Available [facility] [address] [place], [address], 04/09/2023 05:03:51 04/08/19 24 04/09/2023 UA W/REF GLEN CULTU RE urine nitrite NEGATI VE (neg) Not Available [facility] [address] [place], [address], 04/09/2023 05:03:51 04/08/19 24 04/09/2023 UA W/REF GLEN CULTU RE urine leukocyte 3+ (neg) abnormal Not Available [facility] [address] [place], [address], 04/09/2023 05:03:51 04/08/19 24 04/09/2023 UA W/REF GLEN CULTU RE urobilinogen NORMAL mg/dL (norm) Not Available [facility] [address] [place], [address], 04/09/2023 05:03:51 04/08/19 24 04/09/2023 UA W/REF GLEN CULTU RE urine WBCs >182 /hpf (0-5) high Not Available [facility] [address], [address], 04/09/2023 05:03:51 04/08/19 24 04/09/2023 UA W/REF GLEN CULTU RE urine RBCs 5 /hpf (0-3) high Not Available [facility] [address] [place], [address], 04/09/2023 05:03:51 04/08/19 24 04/09/2023 UA W/REF GLEN CULTU RE bacteria SLIGHT hpf (neg) abnormal Not Available [facility] [address] [place], [address], 04/09/2023 05:03:51 04/08/19 24 04/09/2023 UA W/REF GLEN CULTU RE WBC clumps HEAVY /hpf Not Available [facility] [address] [place], [address], 04/09/2023 05:03:51 04/08/19 24 04/09/2023 UA W/REF GLEN CULTU RE squamous epith 1 /hpf (0-8) Not Available [facility] [address] [place], [address], 04/09/2023 05:03:51 04/08/19 24 04/09/2023 UA W/REF GLEN CULTU RE clarity TURBID (clear ) abnormal Not Available [facility] [address] [place], [address], 04/09/2023 05:03:51 04/08/19 24 04/09/2023 UA W/REF GLEN CULTU RE culture indication CULTUR E INDICA DENIS Not Available [facility] [address] [place], [address], 04/09/2023 05:03:51 04/08/19 24 04/09/2023 URINE CULTU RE specimen description URINE Not Available [facility] [address] [place], [address], 04/10/2023 07:05:49 04/08/19 24 04/09/2023 URINE CULTU RE special requests NONE Reflex ed from [id number] Not Available [facility] [address] [place], [address], 04/10/2023 07:05:49 04/08/19 24 04/10/2023 URINE CULTU RE culture NO GROWTH Not Available [facility] [address] [place], [id number], 04/10/2023 07:05:49 04/08/19 24 04/10/2023 URINE CULTU RE report status FINAL 2023 Not Available [facility] [address] [place], [id number], 04/10/2023 07:05:49 04/08/19 24 04/08/2023 urina lysis , dipst ick Leukocytes Large Not Available In-Offi ce Order Internal Use Only DO Not Attach Compendium DO Not Attach Compendium, Do Not Delete/merge, 04/08/2023 13:04:45 04/08/19 24 04/08/2023 urina lysis , dipst ick Nitritie negati ve Not Available In-Office Order Internal Use Only DO Not Attach Compendium DO Not Attach Compendium, Do Not Delete/merge, 04/08/2023 13:04:45 04/08/19 24 04/08/2023 urina lysis , dipst ick Urobilinogen .2 Not Available In-Of fice Order Internal Use Only DO Not Attach Compendium DO Not Attach Compendium, Do Not Delete/merge, 04/08/2023 13:04:45 04/08/19 24 04/08/2023 urina lysis , dipst ick Protein Negati ve Not Available In-Office Order Internal Use Only DO Not Attach Compendium DO Not Attach Compendium, Do Not Delete/merge, 04/08/2023 13:04:45 04/08/19 24 04/08/2023 urina lysis , dipst ick pH 6.0 Not Available In-Office Order Internal Use Only DO Not Attach Compendium DO Not Attach Compendium, Do Not Delete/merge, 04/08/2023 13:04:45 04/08/19 24 04/08/2023 urina lysis , dipst ick Blood Large Not Available In-Office Order Internal Use Only DO Not Attach Compendium DO Not Attach Compendium, Do Not Delete/merge, [id number] 04/08/2023 13:04:45 04/08/19 24 04/08/2023 urina lysis , dipst ick Specific [place] 1.010 Not Available In-Off ice Order Internal Use Only DO Not Attach Compendium DO Not Attach Compendium, Do Not Delete/merge, [id number] 04/08/2023 13:04:45 04/08/19 24 04/08/2023 urina lysis , dipst ick Ketone Negati ve Not Available In-Office Order Internal Use Only DO Not Attach Compendium DO Not Attach Compendium, Do Not Delete/merge, [id number] 04/08/2023 13:04:45 04/08/19 24 04/08/2023 urina lysis , dipst ick Bilirubin Negati ve Not Available In-Office Order Internal Use Only DO Not Attach Compendium DO Not Attach Compendium, Do Not Delete/merge, 04/08/2023 13:04:45 04/08/19 24 04/08/2023 urina lysis , dipst ick Glucose Negati ve Not Available In-Office Order Internal Use Only DO Not Attach Compendium DO Not Attach Compendium, Do Not Delete/merge, 04/08/2023 13:04:45 04/08/19 24 04/08/2023 urina lysis , dipst ick Appearance Slight ly Cloudy Not Available In-Office Order Internal Use Only DO Not Attach Compendium DO Not Attach Compendium, Do Not Delete/merge, 04/08/2023 13:04:45 04/08/19 24 04/08/2023 urina lysis , dipst ick Color Pale Yellow Not Available In-Office Order Internal Use Only DO Not Attach Compendium DO Not Attach Compendium, Do Not Delete/merge, 04/08/2023 13:04:45 08/23/19 24 08/24/2023 TSH+F REE T4 TSH 0.885 uIU/m L 0.450- 4.500 Not Available [facility] ([facility]) [address] [facility], [place], [address], 08/24/2023 06:09:44 08/23/19 24 08/24/2023 TSH+F REE T4 T4,free(dire ct) 1.33 NG/dL 0.82-1 .77 Not Available [facility] ([facility]) [address] [place], [address], 08/24/2023 06:09:44 08/23/19 24 08/24/2023 CBC WITH DIFFE RENTI AL/PL ATELE T WBC 8.3 x10e3 /uL 3.4-10 .8 Not Available [facility] ([facility]) [address] [place], [address], 08/24/2023 06:09:44 08/23/1908/24/2023 CBC WITH DIFFE RENTI AL/PL ATELE T RBC 5.13 x10e6 /uL 3.77-5 .28 Not Available [facility] ([facility]) [address] [place], [address], 08/24/2023 06:09:44 08/23/1908/24/2023 CBC WITH DIFFE RENTI AL/PL ATELE T hemoglobin 14.3 g/dL 11.1-1 5.9 Not Available [facility] ([facility]) [address] [place], [address], 08/24/2023 06:09:44 08/23/1908/24/2023 CBC WITH DIFFE RENTI AL/PL ATELE T hematocrit 45.4 % 34.0-4 6.6 Not Available [facility] ([facility]) [address] [place], [address], 08/24/2023 06:09:44 08/23/1908/24/2023 CBC WITH DIFFE RENTI AL/PL ATELE T MCV 89 fL 79-97 Not Available [facility] ([facility]) [address] [place], [address], 08/24/2023 06:09:44 08/23/19 24 08/24/2023 CBC WITH DIFFE RENTI AL/PL ATELE T MCH 27.9 pg 26.6-3 3.0 Not Available [facility] ([facility]) [address] [facility], [place], [address], 08/24/2023 06:09:44 08/23/19 24 08/24/2023 CBC WITH DIFFE RENTI AL/PL ATELE T MCHC 31.5 g/dL 31.5-3 5.7 Not Available [facility] ([facility]) [address] [facility], [place], [address], 08/24/2023 06:09:44 08/23/19 24 08/24/2023 CBC WITH DIFFE RENTI AL/PL ATELE T RDW 13.5 % 11.7-1 5.4 Not Available [facility] ([facility]) [address] [facility], [place], [address], 08/24/2023 06:09:44 08/23/19 24 08/24/2023 CBC WITH DIFFE RENTI AL/PL ATELE T platelets 385 x10e3 /uL 150-45 0 Not Available [facility] ([facility]) [address] [facility], [place], [address], 08/24/2023 06:09:44 08/23/19 24 08/24/2023 CBC WITH DIFFE RENTI AL/PL ATELE T neutrophils 68 % not estab. Not Available [facility] ([facility]) [address] [facility], [place], [address], 08/24/2023 06:09:44 08/23/19 24 08/24/2023 CBC WITH DIFFE RENTI AL/PL ATELE T lymphs 23 % not estab. Not Available [facility] ([facility]) [address] [place], [address], 08/24/2023 06:09:44 08/23/19 24 08/24/2023 CBC WITH DIFFE RENTI AL/PL ATELE T monocytes 7 % not estab. Not Available [facility] ([facility]) [address] [place], [address], 08/24/2023 06:09:44 08/23/19 24 08/24/2023 CBC WITH DIFFE RENTI AL/PL ATELE T eos 1 % not estab. Not Available [facility] ([facility]) [address] [facility], [place], [address], 08/24/2023 06:09:44 08/23/19 24 08/24/2023 CBC WITH DIFFE RENTI AL/PL ATELE T basos 1 % not estab. Not Available [facility] ([facility]) [address] [facility], [place], [address], 08/24/2023 06:09:44 08/23/19 24 08/24/2023 CBC WITH DIFFE RENTI AL/PL ATELE T immature cells [employer] SUPERVISOR Not Available [facility] ([facility]) [address] [place], [address], 08/24/2023 06:09:44 08/23/19 24 08/24/2023 CBC WITH DIFFE RENTI AL/PL ATELE T neutrophils (absolute) 5.7 x10e3 /uL 1.4-7. 0 Not Available [facility] ([facility]) [address] [place], [address], 08/24/2023 06:09:44 08/23/19 24 08/24/2023 CBC WITH DIFFE RENTI AL/PL ATELE T lymphs (absolute) 1.9 x10e3 /uL 0.7-3. 1 Not Available [facility] ([facility]) [address] [place], [address], 08/24/2023 06:09:44 08/23/19 24 08/24/2023 CBC WITH DIFFE RENTI AL/PL ATELE T monocytes(ab solute) 0.6 x10e3 /uL 0.1-0. 9 Not Available [facility] ([facility]) [address] [facility], [place], [address], 08/24/2023 06:09:44 08/23/19 24 08/24/2023 CBC WITH DIFFE RENTI AL/PL ATELE T eos (absolute) 0.1 x10e3 /uL 0.0-0. 4 Not Available [facility] ([facility]) [address] [facility], [place], [address], 08/24/2023 06:09:44 08/23/19 24 08/24/2023 CBC WITH DIFFE RENTI AL/PL ATELE T baso (absolute) 0.0 x10e3 /uL 0.0-0. 2 Not Available [facility] ([facility]) [address] [facility], [place], [address], 08/24/2023 06:09:44 08/23/19 24 08/24/2023 CBC WITH DIFFE RENTI AL/PL ATELE T immature granulocytes 0 % not estab. Not Available [facility] ([facility]) [address] [facility], [place], [address], 08/24/2023 06:09:44 08/23/19 24 08/24/2023 CBC WITH DIFFE RENTI AL/PL ATELE T immature grans (abs) 0.0 x10e3 /uL 0.0-0. 1 Not Available [facility] ([facility]) [address] [facility], [place], [address], 08/24/2023 06:09:44 08/23/19 24 08/24/2023 CBC WITH DIFFE RENTI AL/PL ATELE T NRBC [employer] SUPERVISOR Not Available [facility] ([facility]) [address] [facility], [place], [address], 08/24/2023 06:09:44 08/23/19 24 08/24/2023 CBC WITH DIFFE RENTI AL/PL ATELE T hematology comments: [employer] SUPERVISOR Not Available [facility] ([facility]) [address] [place], [address], 08/24/2023 06:09:44 08/23/19 24 08/24/2023 COMP. METAB OLIC PANEL (14) glucose 100 mg/dL 70-99 above high normal Not Available [facility] ([facility]) [address] [place], [address], 08/24/2023 06:09:45 08/23/19 24 08/24/2023 COMP. METAB OLIC PANEL (14) BUN 11 mg/dL 8-27 Not Available [facility] ([facility]) [address] [place], [address], 08/24/2023 06:09:45 08/23/19 24 08/24/2023 COMP. METAB OLIC PANEL (14) creatinine 0.75 mg/dL 0.57-1 .00 Not Available [facility] ([facility]) [address] [place], [address], 08/24/2023 06:09:45 08/23/19 24 08/24/2023 COMP. METAB OLIC PANEL (14) eGFR 91 mL/mi n/1.7 3 >59 Not Available [facility] ([facility]) [address] [place], [address], 08/24/2023 06:09:45 08/23/19 24 08/24/2023 COMP. METAB OLIC PANEL (14) BUN/creatini ne ratio 15 12-28 Not Available [facility] ([facility]) [address] [place], [address], 08/24/2023 06:09:45 08/23/19 24 08/24/2023 COMP. METAB OLIC PANEL (14) sodium 140 mmol/ L 134-14 4 Not Available [facility] ([facility]) [address] [place], [address], 08/24/2023 06:09:45 08/23/19 24 08/24/2023 COMP. METAB OLIC PANEL (14) potassium 4.6 mmol/ L 3.5-5. 2 Not Available [facility] ([facility]) [address] [place], [address], 08/24/2023 06:09:45 08/23/19 24 08/24/2023 COMP. METAB OLIC PANEL (14) chloride 104 mmol/ L 96-106 Not Available [facility] ([facility]) [address] [place], [address], 08/24/2023 06:09:45 08/23/19 24 08/24/2023 COMP. METAB OLIC PANEL (14) carbon dioxide, total 20 mmol/ L 20-29 Not Available [facility] ([facility]) [address] [place], [address], 08/24/2023 06:09:45 08/23/19 24 08/24/2023 COMP. METAB OLIC PANEL (14) calcium 9.5 mg/dL 8.7-10 .3 Not Available [facility] ([facility]) [address] [place], [address], 08/24/2023 06:09:45 08/23/19 24 08/24/2023 COMP. METAB OLIC PANEL (14) protein, total 6.6 g/dL 6.0-8. 5 Not Available [facility] ([facility]) [address] [place], [address], 08/24/2023 06:09:45 08/23/19 24 08/24/2023 COMP. METAB OLIC PANEL (14) albumin 4.2 g/dL 3.8-4. 9 Not Available [facility] ([facility]) [address] [place], [address], 08/24/2023 06:09:45 08/23/19 24 08/24/2023 COMP. METAB OLIC PANEL (14) globulin, total 2.4 g/dL 1.5-4. 5 Not Available [facility] ([facility]) [address] [place], [address], 08/24/2023 06:09:45 08/23/19 24 08/24/2023 COMP. METAB OLIC PANEL (14) bilirubin, total 0.3 mg/dL 0.0-1. 2 Not Available [facility] ([facility]) [address] [place], [address], 08/24/2023 06:09:45 08/23/19 24 08/24/2023 COMP. METAB OLIC PANEL (14) alkaline phosphatase 106 IU/L 44-121 Not Available [facility] ([facility]) [address] [place], [address], 08/24/2023 06:09:45 08/23/19 24 08/24/2023 COMP. METAB OLIC PANEL (14) AST (SGOT) 21 IU/L 0-40 Not Available [facility] ([facility]) [address] [place], [address], 08/24/2023 06:09:45 08/23/19 24 08/24/2023 COMP. METAB OLIC PANEL (14) ALT (SGPT) 12 IU/L 0-32 Not Available [facility] ([facility]) [address] [place], [address], 08/24/2023 06:09:45 08/23/19 24 08/24/2023 LIPID PANEL cholesterol, total 214 mg/dL 100-19 9 above high normal Not Available [facility] ([facility]) [address] [place], [address], 08/24/2023 06:09:46 08/23/19 24 08/24/2023 LIPID PANEL triglyceride s 123 mg/dL 0-149 Not Available [facility] ([facility]) [address] [place], [address], 08/24/2023 06:09:46 08/23/19 24 08/24/2023 LIPID PANEL HDL cholesterol 51 mg/dL >39 Not Available [facility] ([facility]) [address] [place], [address], 08/24/2023 06:09:46 08/23/19 24 08/24/2023 LIPID PANEL VLDL cholesterol tyler 22 mg/dL 5-40 Not Available [facility] ([facility]) [address] [place], [address], 08/24/2023 06:09:46 08/23/19 24 08/24/2023 LIPID PANEL LDL chol calc ([facility]) 141 mg/dL 0-99 above high normal Not Available [facility] ([facility]) [address] [facility], [place], [address], 08/24/2023 06:09:46 08/23/19 24 08/24/2023 LIPID PANEL LDL calc comment: [employer] SUPERVISOR Not Available [facility] ([facility]) [address] [place], [address], 08/24/2023 06:09:46 10/27/19 24 10/28/2023 UA/M W/RFL X DAMARIS FLORES NE specific gravity 1.006 1.005- 1.030 normal Not Available [facility] ([facility]) [address] [place], [address], 10/29/2023 20:06:22 10/27/19 24 10/28/2023 UA/M W/RFL X DAMARIS FLORES NE pH 6.5 5.0-7. 5 normal Not Available [facility] ([facility]) [address] [place], [address], 10/29/2023 20:06:22 10/27/19 24 10/28/2023 UA/M W/RFL X CULTU RE, ROUTI NE urine-color Yellow yellow Not Available [facility] ([facility]) [address] [facility], [place], [address], 10/29/2023 20:06:22 10/27/19 24 10/28/2023 UA/M W/RFL X CULTU RE, ROUTI NE appearance Clear clear Not Available [facility] ([facility]) [address] [facility], [place], [address], 10/29/2023 20:06:22 10/27/19 24 10/28/2023 UA/M W/RFL X CULTU RE, ROUTI NE WBC esterase Trace negati ve abnormal Not Available [facility] ([facility]) [address] [facility], [place], [address], 10/29/2023 20:06:22 10/27/19 24 10/28/2023 UA/M W/RFL X CULTU RE, ROUTI NE protein Negati ve negati ve/tra ce Not Available [facility] ([facility]) [address] [place], [address], 10/29/2023 20:06:22 10/27/19 24 10/28/2023 UA/M W/RFL X CULTU RE, ROUTI NE glucose Negati ve negati ve Not Available [facility] ([facility]) [address] [facility], [place], [address], 10/29/2023 20:06:22 10/27/19 24 10/28/2023 UA/M W/RFL X CULTU RE, ROUTI NE ketones Negati ve negati ve Not Available [facility] ([facility]) [address] [facility], [place], [address], 10/29/2023 20:06:22 10/27/19 24 10/28/2023 UA/M W/RFL X CULTU RE, ROUTI NE occult blood Negati ve negati ve Not Available [facility] ([facility]) [address] [facility], [place], [address], 10/29/2023 20:06:22 10/27/19 24 10/28/2023 UA/M W/RFL X CULTU RE, ROUTI NE bilirubin Negati ve negati ve Not Available [facility] ([facility]) [address] [facility], [place], [address], 10/29/2023 20:06:22 10/27/19 24 10/28/2023 UA/M W/RFL X CULTU RE, ROUTI NE urobilinogen ,semi-qn 0.2 mg/dL 0.2-1. 0 normal Not Available [facility] ([facility]) [address] [facility], [place], [address], 10/29/2023 20:06:22 10/27/19 24 10/28/2023 UA/M W/RFL X CULTU RE, ROUTI NE nitrite, urine Negati ve negati ve Not Available [facility] ([facility]) [address] [facility], [place], [address], 10/29/2023 20:06:22 10/27/19 24 10/28/2023 UA/M W/RFL X CULTU RE, ROUTI NE microscopic examination See below: Micro scopi c was indic ated and was perfo rmed. Not Available [facility] ([facility]) [address] [facility], [place], [address], 10/29/2023 20:06:22 10/27/19 24 10/28/2023 UA/M W/RFL X CULTU RE, ROUTI NE WBC None seen /hpf 0 - 5 Not Available [facility] ([facility]) [address] [place], [address], 10/29/2023 20:06:22 10/27/19 24 10/28/2023 UA/M W/RFL X CULTU RE, ROUTI NE RBC None seen /hpf 0 - 2 Not Available [facility] ([facility]) [address] [facility], [place], [address], 10/29/2023 20:06:22 10/27/19 24 10/28/2023 UA/M W/RFL X CULTU RE, ROUTI NE epithelial cells (non renal) 0-10 /hpf 0 - 10 Not Available [facility] ([facility]) [address] [facility], [place], [address], 10/29/2023 20:06:22 10/27/19 24 10/28/2023 UA/M W/RFL X CULTU RE, ROUTI NE epithelial cells (renal) [employer] SUPERVISOR Not Available [facility] ([facility]) [address] [facility], [place], [address], 10/29/2023 20:06:22 10/27/19 24 10/28/2023 UA/M W/RFL X CULTU RE, ROUTI NE casts None seen /lpf none seen Not Available [facility] ([facility]) [address] [facility], [place], [address], 10/29/2023 20:06:22 10/27/19 24 10/28/2023 UA/M W/RFL X CULTU RE, ROUTI NE cast type [employer] SUPERVISOR Not Available [facility] ([facility]) [address] [facility], [place], [address], 10/29/2023 20:06:22 10/27/19 24 10/28/2023 UA/M W/RFL X CULTU RE, ROUTI NE crystals [employer] SUPERVISOR Not Available [facility] ([facility]) [address] [facility], [place], [address], 10/29/2023 20:06:22 10/27/19 24 10/28/2023 UA/M W/RFL X CULTU RE, ROUTI NE crystal type [employer] SUPERVISOR Not Available [facility] ([facility]) [address] [facility], [place], [address], 10/29/2023 20:06:22 10/27/19 24 10/28/2023 UA/M W/RFL X CULTU REDAMARIS NE mucus threads [employer] SUPERVISOR Not Available [facility] ([facility]) [address] [facility], [place], [address], 10/29/2023 20:06:22 10/27/19 24 10/28/2023 UA/M W/RFL X CULTU RE, ROUTI NE bacteria None seen none seen/f ew Not Available [facility] ([facility]) [address] [facility], [place], [address], 10/29/2023 20:06:22 10/27/19 24 10/28/2023 UA/M W/RFL X CULTU RE ROUTRochelle NE yeast [employer] SUPERVISOR Not Available [facility] ([facility]) [address] [facility], [place], [address], 10/29/2023 20:06:22 10/27/19 24 10/28/2023 UA/M W/RFL X CULTU RE ROUTRochelle NE trichomonas [employer] SUPERVISOR Not Available [facility] ([facility]) [address] [facility], [place], [address], 10/29/2023 20:06:22 10/27/19 24 10/28/2023 UA/M W/RFL X CULTU REDAMARIS NE comment [employer] SUPERVISOR Not Available [facility] ([facility]) [address] [facility], [place], [address], 10/29/2023 20:06:22 10/27/19 24 10/28/2023 UA/M W/RFL X CULTU REDAMARIS NE microscopic examination [employer] SUPERVISOR Not Available [facility] ([facility]) [address] [facility], [place], [address], 10/29/2023 20:06:22 10/27/19 24 10/28/2023 UA/M W/RFL X CULTU RE, ROUTI NE urinalysis reflex Commen t This speci men has refle xed to a Urine Cultu re. Not Available [facility] ([facility]) [address] [facility], [place], [address], 10/29/2023 20:06:22 10/27/19 24 10/29/2023 UA/M W/RFL X CULTU RE, ROUTI NE urine culture, routine Final report Not Available [facility] ([facility]) [address] [facility], [place], [address], 10/29/2023 20:06:22 10/27/19 24 10/29/2023 UA/M W/RFL X CULTU RE, ROUTI NE result 1 COMMEN T Mixed uroge nital narciso Great er than 100,0 00 colon y formi ng units per mL Not Available [facility] ([facility]) [address] [facility], [place], [address], 10/29/2023 20:06:22 10/27/19 24 10/27/2023 urina lysis , dipst ick Leukocytes Small Not Available In-Offi ce Order Internal Use Only DO Not Attach Compendium DO Not Attach Compendium, Do Not Delete/merge, [id number] 10/27/2023 14:31:58 10/27/19 24 10/27/2023 urina lysis , dipst ick Nitritie negati ve Not Available In-Office Order Internal Use Only DO Not Attach Compendium DO Not Attach Compendium, Do Not Delete/merge, [id number] 10/27/2023 14:31:58 10/27/19 24 10/27/2023 urina lysis , dipst ick Urobilinogen .2 Not Available In-Of fice Order Internal Use Only DO Not Attach Compendium DO Not Attach Compendium, Do Not Delete/merge, [id number] 10/27/2023 14:31:58 10/27/19 24 10/27/2023 urina lysis , dipst ick Protein Negati ve Not Available In-Office Order Internal Use Only DO Not Attach Compendium DO Not Attach Compendium, Do Not Delete/merge, 10/27/2023 14:31:58 10/27/19 24 10/27/2023 urina lysis , dipst ick pH 6.0 Not Available In-Office Order Internal Use Only DO Not Attach Compendium DO Not Attach Compendium, Do Not Delete/merge, 10/27/2023 14:31:58 10/27/19 24 10/27/2023 urina lysis , dipst ick Blood Negati ve Not Available In-Office Order Internal Use Only DO Not Attach Compendium DO Not Attach Compendium, Do Not Delete/merge, 10/27/2023 14:31:58 10/27/19 24 10/27/2023 urina lysis , dipst ick Specific [place] 1.010 Not Available In-Off ice Order Internal Use Only DO Not Attach Compendium DO Not Attach Compendium, Do Not Delete/merge, 10/27/2023 14:31:58 10/27/19 24 10/27/2023 urina lysis , dipst ick Ketone Negati ve Not Available In-Office Order Internal Use Only DO Not Attach Compendium DO Not Attach Compendium, Do Not Delete/merge, 10/27/2023 14:31:58 10/27/19 24 10/27/2023 urina lysis , dipst ick Bilirubin Negati ve Not Available In-Office Order Internal Use Only DO Not Attach Compendium DO Not Attach Compendium, Do Not Delete/merge, 10/27/2023 14:31:58 10/27/19 24 10/27/2023 urina lysis , dipst ick Glucose Negati ve Not Available In-Office Order Internal Use Only DO Not Attach Compendium DO Not Attach Compendium, Do Not Delete/merge, 10/27/2023 14:31:58 10/27/19 24 10/27/2023 urina lysis , dipst ick Appearance Clear Not Available In-Offi ce Order Internal Use Only DO Not Attach Compendium DO Not Attach Compendium, Do Not Delete/merge, 10/27/2023 14:31:58 10/27/19 24 10/27/2023 urina lysis , dipst ick Color Pale Yellow Not Available In-Office Order Internal Use Only DO Not Attach Compendium DO Not Attach Compendium, Do Not Delete/merge, [id number] 10/27/2023 14:31:58 11/16/19 24 11/16/2023 CMP14 (REFL EX HGB A1C) glucose 103 mg/dL 70-99 above high normal Not Available [facility] ([facility]) [address] [place], [address], 11/17/2023 06:08:38 11/16/19 24 11/16/2023 CMP14 (REFL EX HGB A1C) BUN 9 mg/dL 8-27 normal Not Available [facility] ([facility]) [address] [place], [address], 11/17/2023 06:08:38 11/16/19 24 11/16/2023 CMP14 (REFL EX HGB A1C) creatinine 0.74 mg/dL 0.57-1 .00 normal Not Available [facility] ([facility]) [address] [facility], [place], [address], 11/17/2023 06:08:38 11/16/19 24 11/16/2023 CMP14 (REFL EX HGB A1C) eGFR 93 mL/mi n/1.7 3 >59 normal Not Available [facility] ([facility]) [address] [place], [address], 11/17/2023 06:08:38 11/16/19 24 11/16/2023 CMP14 (REFL EX HGB A1C) BUN/creatini ne ratio 12 12-28 normal Not Available [facility] ([facility]) [address] [place], [address], 11/17/2023 06:08:38 11/16/19 24 11/16/2023 CMP14 (REFL EX HGB A1C) sodium 140 mmol/ L 134-14 4 normal Not Available [facility] ([facility]) [address] [place], [address], 11/17/2023 06:08:38 11/16/19 24 11/16/2023 CMP14 (REFL EX HGB A1C) potassium 4.1 mmol/ L 3.5-5. 2 normal Not Available [facility] ([facility]) [address] [place], [address], 11/17/2023 06:08:38 11/16/19 24 11/16/2023 CMP14 (REFL EX HGB A1C) chloride 106 mmol/ L 96-106 normal Not Available [facility] ([facility]) [address] [place], [address], 11/17/2023 06:08:38 11/16/19 24 11/16/2023 CMP14 (REFL EX HGB A1C) carbon dioxide, total 20 mmol/ L 20-29 normal Not Available [facility] ([facility]) [address] [place], [address], 11/17/2023 06:08:38 11/16/19 24 11/16/2023 CMP14 (REFL EX HGB A1C) calcium 9.9 mg/dL 8.7-10 .3 normal Not Available [facility] ([facility]) [address] [place], [address], 11/17/2023 06:08:38 11/16/19 24 11/16/2023 CMP14 (REFL EX HGB A1C) protein, total 6.6 g/dL 6.0-8. 5 normal Not Available [facility] ([facility]) [address] [place], [address], 11/17/2023 06:08:38 11/16/19 24 11/16/2023 CMP14 (REFL EX HGB A1C) albumin 4.3 g/dL 3.8-4. 9 normal Not Available [facility] ([facility]) [address] [place], [address], 11/17/2023 06:08:38 11/16/19 24 11/16/2023 CMP14 (REFL EX HGB A1C) globulin, total 2.3 g/dL 1.5-4. 5 Not Available [facility] ([facility]) [address] [facility], [place], [address], 11/17/2023 06:08:38 11/16/19 24 11/16/2023 CMP14 (REFL EX HGB A1C) bilirubin, total 0.3 mg/dL 0.0-1. 2 normal Not Available [facility] ([facility]) [address] [facility], [place], [address], 11/17/2023 06:08:38 11/16/19 24 11/16/2023 CMP14 (REFL EX HGB A1C) alkaline phosphatase 104 IU/L 44-121 normal Not Available [facility] ([facility]) [address] [facility], [place], [address], 11/17/2023 06:08:38 11/16/19 24 11/16/2023 CMP14 (REFL EX HGB A1C) AST (SGOT) 17 IU/L 0-40 normal Not Available [facility] ([facility]) [address] [place], [address], 11/17/2023 06:08:38 11/16/19 24 11/16/2023 CMP14 (REFL EX HGB A1C) ALT (SGPT) 11 IU/L 0-32 normal Not Available [facility] ([facility]) [address] [place], [address], 11/17/2023 06:08:38 11/16/19 24 11/16/2023 CBC, PLATE LET, NO DIFFE RENTI AL WBC 5.3 x10e3 /uL 3.4-10 .8 normal Not Available [facility] ([facility]) [address] [place], [address], 11/17/2023 06:08:39 11/16/19 24 11/16/2023 CBC, PLATE LET, NO DIFFE RENTI AL RBC 4.93 x10e6 /uL 3.77-5 .28 normal Not Available [facility] ([facility]) [address] [facility], [place], [address], 11/17/2023 06:08:39 11/16/19 24 11/16/2023 CBC, PLATE LET, NO DIFFE RENTI AL hemoglobin 14.0 g/dL 11.1-1 5.9 normal Not Available [facility] ([facility]) [address] [facility], [place], [address], 11/17/2023 06:08:39 11/16/1911/16/2023 CBC, PLATE LET, NO DIFFE RENTI AL hematocrit 43.7 % 34.0-4 6.6 normal Not Available [facility] ([facility]) [address] [facility], [place], [address], 11/17/2023 06:08:39 11/16/19 24 11/16/2023 CBC, PLATE LET, NO DIFFE RENTI AL MCV 89 fL 79-97 normal Not Available [facility] ([facility]) [address] [place], [address], 11/17/2023 06:08:39 11/16/19 24 11/16/2023 CBC, PLATE LET, NO DIFFE RENTI AL MCH 28.4 pg 26.6-3 3.0 normal Not Available [facility] ([facility]) [address] [place], [address], 11/17/2023 06:08:39 11/16/1911/16/2023 CBC, PLATE LET, NO DIFFE RENTI AL MCHC 32.0 g/dL 31.5-3 5.7 normal Not Available [facility] ([facility]) [address] [place], [address], 11/17/2023 06:08:39 11/16/19 24 11/16/2023 CBC, PLATE LET, NO DIFFE RENTI AL RDW 13.4 % 11.7-1 5.4 Not Available [facility] ([facility]) [address] [facility], [place], [address], 11/17/2023 06:08:39 11/16/19 24 11/16/2023 CBC, PLATE LET, NO DIFFE RENTI AL platelets 407 x10e3 /uL 150-45 0 normal Not Available [facility] ([facility]) [address] 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, [place], [address], 11/17/2023 06:08:39 11/16/19 24 11/17/2023 HEMOG LOBIN A1C hemoglobin A1C 5.5 % 4.8-5. 6 normal Predi abete s: 5.7 - 6.4 Diabe tracy: >6.4 Glyce freddy contr ol for adult s with diabe tracy: <7.0 Not Available [facility] ([facility]) [address] [facility], [place], [address], 11/17/2023 06:08:39 01/02/20 23 12/31/2022 US, duple x, lower extre mity No observ ation record ed. [email or web address] Not Available 01/01 09:24:41 03/29/19 24 03/11/2023 MAMMO , scree lawrence, digit al, bilat eral No observ ation record ed. [email or web address] [facility] [address] [place] [address] [place], [address], 03/29/2023 20:13:25 04/28/19 24 04/27/2023 venou s mappi ng, lower extre mity, compl ete No observ ation record ed. [facility] [address] [facility] [address], [place], [address], 04/28/2023 08:57:05 Result Notes None recorded. Problems Name Problem SNOMED Code Status Onset Date Resolution Date Notes Provider Name and Address Organization Details Recorded Time Acute sinusiti s 70856200 Completed 201109/12/2013 IMPRESSI ON: SINUSITI S IS TRIGGERI NG MIGRAINE S, WILL TREAT WITH ZPAK SINCE EARLY; RECORDED 10/22/19 12 2:01PM BY YANNA REVELES MA, ANNOTATI ON/ADDEN DUM Not Available [facility] 4 14:44:12 Allergic rhinitis 36049584 Active 2013 Not Available [facility] 3 18:56:43 Screenin g for malignan t neoplasm of breast Completed 201109/12/2013 RECORDED 10/22/19 12 2:01PM BY YANNA REVELES MA, ANNOTATI ON/ADDEN DUM Ginger raines, [facility] 7 14:46:41 Candidia sis of mouth 33722270 Completed 200709/12/2013 RECORDED 02/09/20 08 2:20PM BY OMAR RUBIO MA, ANNOTATI ON/ADDEN DUM Not Available [facility] 4 14:44:13 Screenin g for malignan t neoplasm of cervix Completed 201109/12/2013 RECORDED 10/22/19 12 2:01PM BY YANNA REVELES MA ANNOTATI ON/ADDEN DUM Not Available [facility] 4 14:44:13 Insomnia 046165843 Completed 201109/12/2013 IMPRESSI ON: PT WITH LOW MOOD, IRRITABI LLITY DUE TO SISTERS , SEEING GUSTAVO Ramsey, NO SUICIDAL THOUGHTS OR PLANS, SWTART MEDS, HAS APPT WITH ME IN [place]; RECORDED 10/22/19 12 2:01PM BY YANNA REVELES MA, ANNOTATI ON/ADDEN DUM Ginger raines [facility] 7 14:46:31 Gastroes ophageal reflux disease 152688771 Active 2013 Not Available [facility] 3 18:56:43 Gastroes ophageal reflux disease 698871982 Completed 201109/12/2013 IMPRESSI ON: STABLE, CONTINUE MEDS; RECORDED 10/22/19 12 2:01PM BY YANNA REVELES MA, ANNOTATI ON/ADDEN DUM Ginger raines, [facility] 7 14:46:33 Malaise and fatigue 038021080 Completed 201308/19/2016 IMPRESSI ON: TIRED, CHECK LABS, MOST LIKELY FROM STRESS AND POOR SLEEP; RECORDED 09/08/19 14 10:58AM BY ARGENTINA OCONNELL, OFFICE VISIT Ginger raines, [facility] 7 14:46:47 Influenz a vaccine needed [id number] 06 Completed 201208/19/2016 RECORDED 11/11/19 13 2:33PM BY NELDA Lee MD, OFFICE VISIT Ginger raines, [facility] 7 14:46:21 Influenz a vaccine needed [id number] 06 Completed 201209/12/2013 RECORDED 03/09/19 13 11:21AM BY BLANCHE PATTERSON ON/ADDEN DUM [facility] 14:46[facility] Follow-u p encounte r Completed 201109/12/2013 RECORDED 10/22/19 12 2:01PM BY YANNA REVELES MA, ANNOTATI ON/ADDEN DUM Not Available [facility] 4 14:44:13 Pure hypercho lesterol emia 522969635 Completed 201305/26/2017 Nelda raines [facility] 8 09:42:42 Pure hypercho lesterol emia 534213763 Completed 201109/12/2013 RECORDED 10/22/19 12 2:01PM BY YANNA REVELES MA, NELSONATI ON/ADDEN DUM [facility]da Pako [facility] 8 09:42:42 Ingrowin g nail 852702835 Completed 201312/23/2016 JARROD Bernstein, [facility] 7 08:46:55 Insomnia 529237921 Active 2013 Not Available [facility] 3 18:56:43 Low back pain 681904772 Completed 201305/26/2017 Nelda KamronTaylor jacobo [facility] 8 09:42:52 Lymphade nopathy 78165776 Completed 201305/26/2017 Neldastanislav Min jacobo [facility], [facility] 8 09:42:45 Malaise and fatigue 538715004 Completed 201109/12/2013 IMPRESSI ON: AK REQUESTI NG WELLBUTR IN, DEPRESSI DARELL DN STRES WITH OF MOTHER; RECORDED 10/22/19 12 2:01PM BY YANNA REVELES MA, ANNOTATI ON/ADD DUM Ginger raines, [facility] 7 14:46:47 Screenin g for malignan t neoplasm of breast Completed 201308/19/2016 RECORDED 06/03/19 14 7:51AM BY ALIS JUSTIN, HISTORIC AL SUMMARY Ginger raines, [facility] 7 14:46:41 Migraine 95632326 Completed 201109/12/2013 IMPRESSI ON: MIGRAINE IS BETTER, SET OFF BY SINUSITI S; RECORDED 10/22/19 12 2:01PM BY YANNA REVELES MA, ANNOTATI ON/ADDEN DUM Not Available [facility] 4 14:44:14 Administ ration of bacteria l and viral vaccine Completed 200709/12/2013 RECORDED 02/09/20 08 2:25PM BY JARROD CORONA, HISTORIC AL SUMMARY Not Available [facility] 4 14:44:14 Patient status finding [id number] Completed 201308/19/2016 RECORDED 09/08/19 14 11:10AM BY ARGENTINA OCONNELL, OFFICE VISIT Ginger raines, [facility] 7 14:46:19 Joint pain 65849436 Completed 201109/12/2013 IMPRESSI ON: LEFT HIP PAIN WITH CERTAIN MVTS, FEELS A CLICK TOO, CHECK XRAY, STRETCH, IF NOT RESOLVED SEE PT AFTER TRIP; RECORDED 10/22/19 12 2:01PM BY YANNA REVELES MA, ANNOTATI ON/ADDEN DUM Not Available [facility] 4 14:44:14 Cellulit is of digit 44785161 Completed 201312/23/2016 JARROD Bernstein, [facility] 7 08:46:49 Adult health examinat ion Completed 201209/12/2013 IMPRESSI ON: PAP AND MAMMO UTD, IS EXERCISI NG AND LOSING WEIGHT,; RECORDED 03/09/19 13 11:21AM BY BLANCHE PATTERSON ON/ADDEN DUM Ginger raines, [facility] 7 14:46:44 Screenin g for malignan t neoplasm of colon Completed 201109/12/2013 RECORDED 10/22/19 12 2:01PM BY YANNA REVELES MA ANNOTATI ON/ADDEN DUM Ginger raines, [facility] 7 14:46:51 Vitamin D deficien cy 47910846 Completed 201305/26/2017 Nelda raines [facility] 8 09:42:48 Acute sinusiti s 77119850 Completed 201110/09/2013 IMPRESSI ON: SINUSITI S IS TRIGGERI NG MIGRAINE S, WILL TREAT WITH ZPAK SINCE EARLY; RECORDED 10/22/19 12 2:01PM BY YANNA REVELES MA, ANNOTATI ON/ADDEN DUM Not Available [facility] 4 05:35:27 Screenin g for malignan t neoplasm of breast Completed 201110/09/2013 RECORDED 10/22/19 12 2:01PM BY YANNA REVELES MA, NELSONATI ON/ADDEN DUM Ginger raines, [facility] 7 14:46:41 Candidia sis of mouth 78550659 Completed 200710/09/2013 RECORDED 02/09/20 08 2:20PM BY OMAR RUBIO MA, NELSONATI ON/ADDEN DUM Not Available [facility] 4 05:35:27 Screenin g for malignan t neoplasm of cervix Completed 201110/09/2013 RECORDED 10/22/19 12 2:01PM BY YANNA REVELES MA, NELSONATI ON/ADDEN DUM Not Available [facility] 4 05:35:27 Insomnia 748334263 Completed 201110/09/2013 IMPRESSI ON: PT WITH LOW MOOD, IRRITABI LLITY DUE TO SISTERS , SEEING GUSTAVO R, NO SUICIDAL THOUGHTS OR PLANS, SWTART MEDS, HAS APPT WITH ME IN [place]; RECORDED 10/22/19 12 2:01PM BY YANNA REVELES MA, BLANCHE ON/ADDEN DUM Ginger raines, [facility] 7 14:46:31 Influenz a vaccine needed [id number] 06 Completed 201310/09/2013 RECORDED 09/08/19 14 10:53AM BY BLANCHE PATTERSON ON/ADDEN DUM Ginger raines, [facility] 7 14:46:21 Follow-u p encounte r Completed 201110/09/2013 RECORDED 10/22/19 12 2:01PM BY YANNA REVELES MA, NELSONATI ON/ADDEN DUM Not Available [facility] 4 05:35:27 Adult health examinat ion Completed 201308/19/2016 IMPRESSI ON: PT TP SET UP PAP, MAMMO AND COLONOSC OPY UTD, WILL EXERCISE MORE; RECORDED 09/08/19 14 2:22PM BY NELDA Lee MD, OFFICE VISIT Ginger raines, [facility] 7 14:46:44 Migraine 34221988 Completed 201110/09/2013 IMPRESSI ON: MIGRAINE IS BETTER, SET OFF BY SINUSITI S; RECORDED 10/22/19 12 2:01PM BY YANNA REVELES MA, ANNOTATI ON/ADDEN DUM Not Available [facility] 4 05:35:28 Administ ration of bacteria l and viral vaccine Completed 200710/09/2013 RECORDED 02/09/20 08 2:25PM BY JARROD CORONA, HISTORIC AL SUMMARY Not Available [facility] 4 05:35:28 Obesity 350422995 Completed 201305/26/2017 Nelda raines [facility] 8 09:43:04 Joint pain 16952104 Completed 201110/09/2013 IMPRESSI ON: LEFT HIP PAIN WITH CERTAIN MVTS, FEELS A CLICK TOO, CHECK XRAY, STRETCH, IF NOT RESOLVED SEE PT AFTER TRIP; RECORDED 10/22/19 12 2:01PM BY YANNA REVELES MA, ANNOTATI ON/ADDEN DUM Not Available [facility] 4 05:35:28 Adult health examinat ion Completed 201210/09/2013 IMPRESSI ON: PAP AND MAMMO UTD, IS EXERCISI NG AND LOSING WEIGHT,; RECORDED 03/09/19 13 11:21AM BY BLANCHE PATTERSON ON/ADDEN DUM Ginger raines [facility] 7 14:46:44 Screenin g for malignan t neoplasm of colon Completed 201308/19/2016 IMPRESSI ON: DUE OT FAMILY HX PT WILL SET UP; RECORDED 09/08/19 14 2:22PM BY NELDA Lee MD, OFFICE VISIT Ginger raines [facility] 7 14:46:51 Difficul ty swallowi ng 191689283 Completed 12/23/2016 [facility] 7 08:46:46 Asthma 915588582 Active Not Available [facility] 3 18:56:43 Dysuria 71377604 Completed 12/23/2016 JARROD Bernstein [facility] 7 08:46:58 Body mass index 30+ - obesity 918678469 Com[facility]/26/2017 [facility] 8 09:42:59 Hypercho lesterol emia 87089904 Completed 05/26/2017 [facility] jacobo [facility] 8 09:42:56 Fatigue 82502363 Completed 08/19/2016 Ginger raines [facility] 7 14:47:18 Neck pain 27215565 Completed 08/19/2016 Ginger raines [facility] 7 14:47:25 Arthriti s 9422827 Active 2018 Not Available [facility] 3 18:56:43 COVID-19 266989874 Completed 201908/02/2020 Removal Reason: Problem marked historic al by user [email or web address] 5 from the [employer]-19 watch flag Ivelisse Brennan olu [facility] 1 14:27:11 Morbid obesity 425728638 Active 2022 Not Available [facility] 3 18:56:43 Notes:Some problems listed i n Documents: #[id number], #[id number] could not be added to this patient's chart. Please review these documents and add these problems to the patient's chart manually as needed. Problem Notes None recorded. Procedures Surgical History Date Name Laterality Status Provider Name and Address Organization Details Recorded Time 022 Most Recent Mammogram completed Meredith Díaz [facility] 02/25/2022 13:03:26 022 total replacement of left knee joint completed Candace Edwards RN [facility] 09/29/2021 14:31:28 022 prosthetic unicompartmental arthroplasty of right knee completed Candace Edwards RN [facility] 08/20/2021 14:39:47 021 Mammogram both breasts completed Fina Justin [facility] 02/20/2021 10:55:12 020 Date of Last Colonoscopy completed Fina Justin [facility] 01/19/2020 15:25:42 020 Colonoscopy completed Fina Justin [facility] 01/19/2020 15:25:21 020 Date of Last Pap Smear completed Omar coughlin MA [facility] 12/05/2019 09:37:51 016 Mammogram one breast completed Omar coughlin MA [facility] 12/23/2016 09:12:39 016 Endoscopic us exam esoph completed Ivelisse Brennan [facility] 01/05/2017 16:24:31 015 Egd diagnostic brush wash completed Omar coughlin MA [facility] 12/23/2016 08:53:10 011 Ankle arthroscopy/surgery completed Omar coughlin MA [facility] 12/23/2016 09:00:38 010 Orthopedic Surgery completed Argentina Oconnell MA [facility] 06/16/2021 08:59:09 001 Cholecystectomy completed Argentina Oconnell MA [facility] 06/16/2021 08:59:09 Cholecystectomy completed Argentina Oconnell MA [facility] 06/16/2021 08:59:09 Imaging Results Imaging Date Name Status LastModified by Organiz ation Details LastModified Time 12/31/2022 US, duplex, lower extremity completed [email or web address] Information not available 01/01/2023 09:24:41 03/11/2023 MAMMO, screening, digital, bilateral completed [email or web address] [facility] [address] [place], [address], 03/29/2023 20:13:25 04/27/2023 venous mapping, lower extremity, complete completed [facility] [address] [address], [place], [address], 04/28/2023 08:57:05 Procedure Notes None recorded. Medical Equipment None Reported. Allergies Allergen ID Allergen Name Allergen Category Reaction Reaction Severity Criticality Documentation Date Start Date Code Code System Note Provider Name and Address Organization Details Recorded Time 07882 Substance with sulfonami de structure and antibacte rial mechanism of action (substanc e) medicatio n hives Not available Not available 05/08/20142012 09056 8003 SNOMED Debby Ortiz [facility] 5 10:51:42 87672 meloxicam medicatio n abdominal pain Not available Not available 12/23/2016 43561 RxNorm GI upset JARROD Patterson [facility] 9 09:09:55 28099 Gemtesa medicatio n facial swelling Not available Not available 04/01/2022 58544 16 RxNorm Not Available [facility] 3 11:47:57 6377 codeine medicatio n vomiting Not available Not available 09/12/20132013 2670 RxNorm Ginger raines [facility] 7 14:44:31 6378 Product containin g penicilli n and antibioti c (product) medicatio n hives Not available Not available 09/12/20132013 [address] [facility] 7 14:44:35 Medications Name Sig Start Date Stop Date Status Note LastModified by Organization Details LastModified Time carisopro dol 350 mg tablet TAKE 1 TABLET BY MOUTH THREE TIMES A DAY NEEDED 04/01 completed Not Available Not Available Not Available celecoxib 200 mg capsule TAKE 1 CAPSULE BY MOUTH EVERY DAY NEEDED 12/24 completed Not Available Not Available Not Available cyclobenz aprine 10 mg tablet TAKE 1 TABLET BY MOUTH EVERY DAY AT BEDTIME 05/31 completed Not Available Not Available Not Available fluconazo le 100 mg tablet DAILY 06/27 completed RECORDED 10/18/19 08 11:30AM BY DUC YADAV MD, MEDICATI ON AUTO-TISHA CTIVATIO N;TAKE 2 TABLETS ON DAY 1 Not Available Not Available Not Available bupropion HCl SR 150 mg tablet,12 hr sustained -release BID 03/09 completed RECORDED 03/09/19 13 11:35AM BY ARGENTINA OCONNELL, OFFICE VISIT; Not Available Not Available Not Available clindamyc in HCl 300 mg capsule TAKE 2 CAPSULES BY MOUTH 30 MINUTES PRIOR TO DENTAL APPOINTM ENT active Not Available Not Available No t Available trazodone 50 mg tablet TAKE 1 TABLET BY MOUTH EVERY DAY 08/18 completed Not Available Not Available Not Available atorvasta tin 10 mg tablet TAKE 1 TABLET BY MOUTH EVERY DAY 12/23 completed Not Available Not Available Not Available azithromy ko 250 mg tablet TAKE 2 TABLETS BY MOUTH TODAY, THEN TAKE 1 TABLET DAILY FOR 4 DAYS 03/07 completed Not Available Not Available Not Available benzonata te 200 mg capsule Take 1 capsule 3 times a day by oral route as needed for 7 days. 03/07 completed Not Available Not Available Not Available meloxicam 15 mg tablet TAKE 1 TABLET EVERY DAY BY ORAL ROUTE FOR 30 DAYS. 04/01 completed Not Available Not Available Not Available prednison e 20 mg tablet 12/24 completed Not Available Not Available Not Available ciproflox acin 250 mg tablet TAKE 1 TABLET BY MOUTH EVERY 12 HOURS DIRECTED FOR 5 DAYS active Not Available Not Available No t Available sulfameth oxazole 800 mg-trimet hoprim 160 mg tablet 08/19 completed Not Available Not Available Not Available omeprazol e 40 mg capsule,d elayed release Take 1 capsule as needed by oral route. 05/18 completed Not Available Not Available Not Available aspirin 81 mg tablet,de layed release Take 1 tablet every day by oral route. 06/02 completed Not Available Not Available Not Available tramadol 50 mg tablet TAKE 1 TO 2 TABLET BY MOUTH EVERY 6 HOURS NEEDED FOR MILD PAIN. DO NOT EXCEED 8 TABLET (400MG) PER DAY. 04/01 completed Not Available Not Available Not Available Nexium 20 mg capsule,d elayed release Take 20 mg by oral route. 09/04 completed Not Available Not Available Not Available meloxicam 7.5 mg tablet TAKE 1 TABLET BY MOUTH EVERY DAY 03/07 completed Not Available Not Available Not Available hydromorp louis 2 mg tablet TAKE 1-2 TABLETS EVERY 4-[address] WHILE TAKING THIS MEDICATI ON 07/22 completed Not Available Not Available Not Available citalopra m 20 mg tablet DAILY 11/10 completed RECORDED 11/11/19 13 2:04PM BY ARGENTINA OCONNELL, OFFICE VISIT; Not Available Not Available Not Available lorazepam 0.5 mg tablet Take 1 tablet every day by oral route as needed for 30 days. 06/02 completed Not Available Not Available Not Available aspirin 325 mg tablet,de layed release TAKE 1 TABLET BY MOUTH 2 TIMES A DAY-MEDI CATION TO BE STARTED AFTER SURGERY 04/01 completed Not Available Not Available Not Available doxycycli ne monohydra te 100 mg capsule TAKE 1 CAPSULE BY MOUTH TWICE A DAY FOR 5 DAYS 04/08 completed Not Available Not Available Not Available cephalexi n 500 mg capsule TAKE 1 CAPSULE BY MOUTH TWICE A DAY FOR 5 DAYS 10/26 completed Not Available Not Available Not Available erythromy ko 5 mg/gram (0.5 %) eye ointment 12/24 completed Not Available Not Available Not Available polymyxin B sulfate 10,000 unit-trim ethoprim 1 mg/mL eye drops INSTILL 1 DROP INTO AFFECTED EYES 6 TIMES A DAY BY OPHTHALM IC ROUTE DIRECTED FOR 7 DAYS. 04/01 completed Not Available Not Available Not Available metronida zole 0.75 % topical cream 05/31 completed Not Available Not Available Not Available docusate sodium 100 mg capsule TAKE 1 CAPSULE BY MOUTH TWICE DAILY. MEDICATI ON TO BE STARTED AFTER SURGERY 04/01 completed Not Available Not Available Not Available omeprazol e 20 mg capsule,d elayed release TAKE 1 CAPSULE BY MOUTH EVERY DAY 2021 active Not Available Not Available Not Avai lable zolpidem 5 mg tablet TAKE 1 TABLET BY MOUTH EVERY DAY AT BEDTIME NEEDED active Not Available Not Available No t Available gabapenti n 100 mg capsule QHS PRN LEG PAIN 10/01 completed RECORDED 10/02/19 11 3:49PM BY BLANCHE BOWERS ON/ADAMA DUM; Not Available Not Available Not Available lorazepam 1 mg tablet TAKE 1 TABLET BY MOUTH AT BEDTIME NEEDED FOR 30 DAYS 06/03 completed Not Available Not Available Not Available epinephri ne 0.3 mg/0.3 mL injection , auto-inje ctor USE DIRECTED FOR ANAPHYLA XIS THEN CALL 911 active Not Available Not Available No t Available zolpidem 10 mg tablet TAKE 1 TABLET BY MOUTH EVERY DAY AT BEDTIME NEEDED FOR 30 DAYS active Not Available Not Available No t Available scopolami ne 1 mg over 3 days transderm al patch APPLY 1 PATCH BEHIND EAR PRIOR TO SURGERY 04/01 completed Not Available Not Available Not Available methylpre dnisolone 4 mg tablets in a dose pack USE DIRECTED 06/16 completed Not Available Not Available Not Available ondansetr on 4 mg disintegr ating tablet DISSOLVE 1 TABLET BY MOUTH EVERY 6 HOURS NEEDED FOR NAUSEA AND VOMITING 04/01 completed Not Available Not Available Not Available fluoxetin e 20 mg capsule DAILY 10/01 completed RECORDED 10/02/19 11 3:49PM BY BLANCHE BOWERS ON/ADAMA DUM; Not Available Not Available Not Available fluticaso ne propionat e 50 mcg/actua tion nasal spray,oscar pension SPRAY 2 SPRAYS EVERY DAY BY INTRANAS AL ROUTE NEEDED FOR 30 DAYS. active Not Available Not Available No t Available naproxen 500 mg tablet TAKE 1 TABLET BY MOUTH TWICE A DAY WITH FOOD 12/24 completed Not Available Not Available Not Available clindamyc in 1 % lotion apply thin layer 03/07 completed Not Available Not Available Not Available albuterol (refill) 90 mcg/actua tion aerosol inhaler Inhale 2 puffs every 4-6 hours by inhalati on route as needed. 06/02 completed Not Available Not Available Not Available nitrofura ntoin monohydra te/macroc rystals 100 mg capsule TAKE 1 CAPSULE BY MOUTH TWICE A DAY FOR 7 DAYS 08/18 completed Not Available Not Available Not Available Flovent HFA 110 mcg/actua tion aerosol inhaler Inhale 1 puff twice a day by inhalati on route. 12/23 completed Not Available Not Available Not Available Genoveva ramsey Leg Rest LIFETIME 06/09 completed RECORDED 07/24/19 12 8:42AM BY NISREEN BOWERS ON AUTO-TISHA CTIVATIO N;4-12-2 011 DX: FRACTURE D LEFT ANKLE Not Available Not Available Not Available peg 3350 240 gram-elec trolytes 22.72 gram-6.72 g-5.84 g powdr for soln active Not Available Not Available Not Available trospium ER 60 mg capsule,e xtended release 24 hr TAKE 1 CAPSULE BY MOUTH EVERY MORNING active Not Available Not Available No t Available vitamin E (dl, acetate) 180 mg (400 unit) capsule Take 1 capsule every day by oral route. 06/17 completed Not Available Not Available Not Available turmeric root extract 500 mg capsule Take 1 capsule every day by oral route. 04/01 completed Not Available Not Available Not Available Saxenda 3 mg/0.5 mL (18 mg/3 mL) subcutane ous pen injector Inject by subcutan eous route for 30 days. 12/24 completed Not Available Not Available Not Available Clenpiq 10 mg-3.5 gram-12 gram/160 mL oral solution 12/04 completed Not Available Not Available Not Available Afluria Qd 2019-21 (36 mos up)(PF)60 mcg (15 mcg x4)/0.5 mL IM syringe 03/07 completed Not Available Not Available Not Available Gemtesa 75 mg tablet TAKE 1 TABLET BY MOUTH EVERY DAY 04/01 completed Not Available Not Available Not Available Paxlovid 300 mg (150 mg x 2)-100 mg tablets in a dose pack TAKE 3 TABLETS BY MOUTH TWICE A DAY FOR 5 DAYS 04/19 /2023 completed Not Available Not Available Not Available COVID-19 At-Home Test kit FOLLOW INSTRUCT IONS INCLUDED WITH THE PACKAGE. 07/22 completed Not Available Not Available Not Available Vitals Date Recorded Body height Body mass index (BMI) Body weight Oxygen saturation Oxygen saturation in Arterial blood by Pulse oximetry Heart rate Body temperature Systolic blood pressure Diastolic blood pressure Provider Name and Address Organization Details Last Updated DateTime 3 163.83 cm 40.1 kg/m2 385064. 09 g 99 % 99 % 82 /min 97.7 [degF] 125 mm[Hg] 79 mm[Hg] Argentina Oconnell MA [facility] 3 09:37:59 Date Recorded Body height Body mass index (BMI) Body weight Heart rate Oxygen saturation Oxygen saturation in Arterial blood by Pulse oximetry Body temperature Systolic blood pressure Diastolic blood pressure Provider Name and Address Organization Details Last Updated DateTime 3 163.83 cm 39.7 kg/m2 938214. 91 g 82 /min 98 % 98 % 97.3 [degF] 118 mm[Hg] 84 mm[Hg] Anne Vega MA [facility] 3 09:18:59 Date Recorded Body height Body mass index (BMI) Body weight Heart rate Oxygen saturation Oxygen saturation in Arterial blood by Pulse oximetry Body temperature Systolic blood pressure Diastolic blood pressure Provider Name and Address Organization Details Last Updated DateTime 4 163.83 cm 39.4 kg/m2 025808. 12 g 94 /min 98 % 98 % 98.4 [degF] 109 mm[Hg] 75 mm[Hg] Anne Vega MA [facility] 4 14:23:43 Date Recorded Body height Body mass index (BMI) Body weight Heart rate Oxygen saturation Oxygen saturation in Arterial blood by Pulse oximetry Body temperature Systolic blood pressure Diastolic blood pressure Provider Name and Address Organization Details Last Updated DateTime 4 163.83 cm 37.5 kg/m2 140023. 51 g 80 /min 98 % 98 % 97.6 [degF] 107 mm[Hg] 72 mm[Hg] Abiel hagen MA [facility] 4 09:07:27 Date Recorded Body height Body mass index (BMI) Body weight Heart rate Oxygen saturation Oxygen saturation in Arterial blood by Pulse oximetry Body temperature Systolic blood pressure Diastolic blood pressure Provider Name and Address Organization Details Last Updated DateTime 4 163.83 cm 34.3 kg/m2 02488.2 5 g 83 /min 100 % 100 % 98.3 [degF] 77 mm[Hg] 51 mm[Hg] Jeny Macario MA [facility] 4 14:31:17 Social History Question Answer Notes LastModified by Organizat ion Details LastModified Time Tobacco Smoking Status Never Smoker [facility]2014 10:06:28 Do You Have An Advance Directive? Yes HCP [email or web address] Information not available 06/16/2021 What Is Your Level Of Alcohol Consumption? Occasional [email or web address] Information not available 09/28/2014 Is Blood Transfusion Acceptable In An Emergency? Yes [email or web address] Information not available 09/28/2014 What Is Your Level Of Caffeine Consumption? Occasional Tea; NO SODA/COFFEE Information not available 12/23/2016 How Much Tobacco Do You Chew? None Information not available 12/23/2016 Are You Currently Employed? Yes [email or web address] Information not available 09/28/2014 What Type Of Diet Are You Following? REGULAR [email or web address] Information not available 09/28/2014 Which Illicit Or Recreational Drugs Have You Used? None Information not available 12/23/2016 Do You Or Have You Ever Used E-cigarettes Or Vape? 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 With Others (Sravan) And 2 Children Information not available 06/16/2021 Do You Take Precautions To Prevent Distracted Driving? Yes [email or web address] Information not available 09/28/2014 How Often Do You Need To Have Someone Help You When You Read Instructions, Pamphlets, Or Other Written Material From Your Doctor Or Pharmacy? Never [email or web address] Information not available 09/28/2014 Have You Served In The ? No Information not available 12/23/2016 Have You Or Anyone In Your Household Had Any Of The Following Symptoms In The Last 14 Days: Sore Throat, Cough, Chills, Body Aches For Unknown Reasons, Shortness Of Breath For Unknown Reasons, Loss Of Smell, Loss Of Taste, Fever At Or Greater Than 100 Degrees Fahrenheit? No Cough [email or web address] Information not available 06/16/2021 Are You Or Anyone In Your Household A Health Care Provider Or Emergency Responder? Yes Pt Is A Nurse Information not available 12/05/2019 To The Best Of Your Knowledge Have You Been In Close Proximity To Any Individual Who Tested Positive For COVID-19? No [email or web address] Information not available 06/16/2021 What Was The Date Of Your Most Recent Tobacco Screening? 08/19/2023 [email or web address] Information not available 08/19/2023 How Many Children Do You Have? 2 Flavio Information not available 12/23/2016 Do You Use Protection During Sex? No Information not available 12/23/2016 Do You Use Your Seat Belt Or Car Seat Routinely? Yes [email or web address] Information not available 06/16/2021 Seat Belts Used Routinely Yes [email or web address] Information not available 06/16/2021 Are You Sexually Active? Yes [email or web address] Information not available 09/28/2014 Smoke Alarm In Home Yes [email or web address] Information not available 06/16/2021 Do You Have Smoke And Carbon Monoxide Detectors In Your Home? Yes [email or web address] Information not available 06/16/2021 At What Age Did You Start Smoking Tobacco? 0 Information not available 12/23/2016 Are You Passively Exposed To Smoke? No Information not available 12/23/2016 Do You Or Have You Ever Used Smokeless Tobacco? Never Used Smokeless Tobacco Information not available 12/05/2019 How Much Tobacco Do You Smoke? No Information not available 12/23/2016 Do You Use Any Illicit Or Recreational Drugs? No Information not available 02/13/2022 Do You Use Sunscreen Routinely? Yes [email or web address] Information not available 09/28/2014 How Many Years Have You Smoked Tobacco? 0 Information not available 12/23/2016 Do You Or Have You Ever Used Any Other Forms Of Tobacco Or Nicotine? No [email or web address] Information not available 06/16/2021 Sex: Unknown Functional Status Question Answer Note LastModified by Organizat ion Details LastModified Time Are you able to walk? YESWOREST [email or web address] Information not available 06/16/2021 Are you able to care for yourself? Yes [email or web address] Information not available 09/28/2014 What is your exercise level? Occasional [email or web address] Information not available 06/16/2021 Mental Status None recorded. Family History Relationship Description Onset Age of this Age Resolved Age Notes LastModified by Organization Details LastModified Time Maternal Grandfather Carcinoma in situ of colon Not available 06/16 08:58:39 Maternal Grandfather Malignant tumor of colon Not available 06/16 08:58:39 Sister Malignant tumor of body of pancreas [email or web address] Not available 06/16 08:58:39 Sister Heart disease [email or web address] Not available 06/16 08:58:39 Sister Migraine [email or web address] Not availab le 06/16/2021 08:58:39 Paternal Aunt Carcinoma in situ of breast [email or web address] Not available 06/16 08:58:39 Father Hypercholest erolemia lgladingdilor enz Not available 11/01/2015 11:45:12 Father Migraine [email or web address] Not availab le 06/16/2021 08:58:39 Father Hypertensive disorder [email or web address] Not available 06/16 08:58:39 Father Cerebrovascu lar accident 89 [phone] [email or web address] Not available 09:02:43 Sister Hypercholest erolemia [email or web address] Not available 06/16 08:58:39 Mother Heart disease Not available 06/16 08:58:39 Unspecified Relation Non-alcoholi c fatty liver [email or web address] Not available 06/16 08:58:39 Maternal Aunt Malignant tumor of breast [email or web address] Not available 06/16 08:58:39 Medical History Condition Response Headaches/Migraines Y Varicose Veins Y Obesity Y Vision or Eye Problems Y Arthritis Y Acid Reflux (GERD) Y GI Problems Y Acne Y Skin Problems Y Bladder Problems Y Allergies Y Reflux/GERD Y Gynecological History Statement/Question Response Date of Last Pap Smear 09/14/2019 Date of Last Colonoscopy 01/18/2020 Most Recent Mammogram 02/24/2022 Obstetrics History GPAL:G 0 P 0 0 0 0 Immunizations Vaccine Type Date Status Note Provider Nam e and Address Organization Details Recorded Time Influenza, split virus, quadrivalent, preservative 8 completed Not Available [facility] 07/24/2022 18:56:44 Influenza, split virus, quadrivalent, PF 0 completed Not Available [facility] 07/24/2022 18:56:44 COVID-19, mRNA, LNP-S, PF, 30 mcg/0.3 mL dose 1 completed Not Available [facility] 07/24/2022 18:56:44 COVID-19, mRNA, LNP-S, PF, 100 mcg/0.5mL dose or 50 mcg/0.25mL dose 1 completed Not Available [facility] 07/24/2022 18:56:44 COVID-19, mRNA, LNP-S, PF, 30 mcg/0.3 mL dose 1 completed Not Available [facility] 07/24/2022 18:56:44 Influenza, MDCK, quadrivalent, PF 8 completed Not Available [facility] 07/24/2022 18:56:44 Influenza, split virus, quadrivalent, PF 7 completed Not Available [facility] 07/24/2022 18:56:44 Influenza, split virus, quadrivalent, PF 1 completed Not Available [facility] 07/24/2022 18:56:44 influenza, unspecified formulation 0 completed Not Available [facility] 07/24/2022 18:56:44 Tdap 7 completed Not Available [facility] 07/24/2022 18:56:44 Influenza, split virus, quadrivalent, PF 6 completed Not Available [facility] 07/24/2022 18:56:44 Influenza, MDCK, quadrivalent, PF 2 completed Not Available [facility] 07/24/2022 18:56:44 Influenza, split virus, trivalent, preservative 8 completed Not Available [facility] 07/24/2022 18:56:44 Tdap 7 completed Not Available [facility] 07/24/2022 18:56:44 Influenza, split virus, trivalent, preservative 0 completed Not Available [facility] 07/24/2022 18:56:44 Novel [id number] , all formulations 0 completed Not Available [facility] 07/24/2022 18:56:44 Influenza, split virus, trivalent, preservative 2 completed Not Available [facility] 07/24/2022 18:56:44 influenza, seasonal, intradermal, preservative free 3 completed Not Available [facility] 07/24/2022 18:56:44 Past Encounters Encounter ID Performer Location Encounter Start Date Encounter Closed Date Diagnosis/Indication Diagnosis SNOMED-CT Code Diagnosis ICD10 Code Diagnosis Note [id number] auto[facility]Comm erce [id number] [facility],[address] [place] [address] 09/07/2013 00:00:00 [id number] auto[facility]Comm erce [id number] [facility],[address] [place] [address] 06/14/2007 00:00:00 [id number] autoEComm erce [id number] [facility],[address] [place] [address] 03/29/2006 00:00:00 [id number] autoEComm erce [address] [facility] [place] [address] 12/08/2007 00:00:00 [id number] autoEComm erce [id number] [facility] [place] [address] 02/09/2008 00:00:00 [id number] autoEComm erce [id number] [facility] [place] [address] 04/07/2008 00:00:00 [id number] autoEComm erce [address] [facility],[address] [place] [address] 05/31/2008 00:00:00 [id number] [facility]Comm [facility] [address] [facility] [place], J[place] [address] 03/08/2009 00:00:00 [id number] autoEComm erce [address] [facility] [place]ito [place], JARROD [address] 10/22/2011 00:00:00 [id number] [facility]Comm [facility] [address] [facility] [place], JARR[place] [address] 03/09/2012 00:00:00 [id number] [facility]Comm [facility] [address] [place] [address],[address] [place], J[place] [address] 11/10/2012 00:00:00 [id number] Kiara Smith Main Office [address] [facility] [address] [place] [address] 07/20/2014 10:16:51 07/20/2014 11:07:06 Difficulty swallowing 137883241 intermitte nt, new for a month, we will get pti n to see Dr Lopez for eval, probable EGD. Allergic rhinitis 93137582 continue meds well controlled . Asthma 600839495 well controlled on meds Insomnia 441133319 sleep ing well on ambien [id number] Main Office [address] [facility] [address] [place] [address] 09/28/2014 09:44:30 09/28/2014 11:06:47 Dysuria 86767628 negative urine, left lower back pain more muscular, no abx needed Adult heal th examination 001863932 all screening is utd, is exercising and doing well Body mass index 30+ - obesity 870205994 is losing weight Hypercholesterolemia 64934328 check fasting Fatigue 57145678 check lasbs Asthma 144339683 well controlled on meds [id number] Nelda centeno Main Office [address] [facility] [address] [place] [address] 11/01/2015 10:46:43 11/01/2015 12:09:23 Needs influenza immunization 633160256 Z23 Pure hypercholesterolemia 848670723 E78.0 pt with elevated LDL, now will start cholestero l med to lower it due to family history, check fasting and then start med, sister with [place] at age 50 and family with high cholestero l, will do WW as well as exercise Fatigue 30412540 R53.83 check labs, was bit by a tick Allergic rhinitis 407628 04 J30.89 continue meds well controlled . [id number] Nelda centeno Main Office [address] [place] [address] 08/19/2016 14:27:57 08/19/2016 15:46:21 Cough 48670830 R05 multifacto rial - ? d/t pnd vs gerd vs other --- doubt pna, ? likely d/t gastritis / gerd since was on meloxicam recently Gastroesop hageal reflux disease 656158224 K21.9 advised pt to increase ppi to bid x 2 months -- if not approved by ins - get otc [employer] web 42735191 K22.2 h/o schatzki's ring s/p dilation x 2 yrs ago - no current dysphagia to food but does have pill dysphagia - see above re: ppi - hope that pill dysphagia will gradually improve on ppi bid - if not, will consider referral back to GI Congestion of nasal sinus 72387425 R09.81 add saline mult times daily, balaji before flonase Allergic rhinitis 602735 04 J30.9 [id number] Shameka Lazo Main Office [address] [facility] [address] [place] [address] 09/23/2016 14:13:07 09/23/2016 15:14:31 Cough 16464867 R05 multifacto rial - about 25% better - see below - cont meds as dir, will get gi eval Gastroesop hageal reflux disease 567367418 K21.9 cont ppi to bid x 2 months Terminal [employer] web 62985702 K22.2 h/o schatzki's ring s/p dilation x 2 yrs ago - no current dysphagia to food but does have pill dysphagia - encouraged her to call GI - gave pt a copy of 4.16 consult note Congestion of nasal sinus 68810629 R09.81 cont saline and flonase - no recent sinusitis but has had a few times in past, never seen by ENT. curr - no feel ill, but chronic nasal congestion persists - will check xray of sinuses Allergic rhinitis 429395 04 J30.9 cont flonase [id number] Nelda Pako jacobo Main Office [address] [facility] [address] [place] [address] 12/23/2016 08:42:09 12/23/2016 09:31:36 Adult health examination 497399648 Z00.00 all screening is utd, is exercising and doing well Hypercholesterolemia 136 31493 E78.00 check fasting Gastroesop hageal reflux disease 650082520 K21.9 continue meds Insomnia 686090545 G47.0 0 sleeping well on ambien Asthma 707038164 J45.90 9 well controlled on meds Administra tion of viral vaccine 55676704 Z23 Dysuria 13011719 R30.0 symptoms persist, will tx for 10 days and have pt do a test of cure Body mass index 30+ - obesity 731297236 E66.9 Z68.37 is losing weight [id number] Nelda Pako fuentesenzo Main Office [address] [address] [place] [address] 05/26/2017 09:01:52 05/26/2017 10:03:50 Pain in right knee 1054292406 47790 M25.561 had injections from [facility] . will work on weight loss and strengthen ing Weight gain 0421947 R63. 5 disapponte d, will work on eating habits and exercise Gastroesop hageal reflux disease 411255937 K21.9 continue meds Asthma 162407377 J45.90 9 well controlled on meds Seasonal a llergic rhinitis 367982115 J30.2 Hypercholesterolemia 136 09910 E78.00 check fasting Fatigue 56072184 R53.83 check labs [id number] Shameka Lazo Main Office [address] [facility] [address] [place] [address] 05/18/2018 08:54:49 05/18/2018 09:51:34 Arthritis 0336655 M19.90 Agrees to go to PT and if not better will see [facility] back for evaluation . Continue wt loss program. Try otc advil alternatin g with tylenol, stop mobic. Add PPI for GI protection Gastroesop hageal reflux disease 083705342 K21.9 Start PPI for gastro protection [id number] Nelda LundyPareshTaylor garretto Main Office [address] [address] [place] [address] 06/01/2019 09:40:52 06/01/2019 11:39:14 Arthritis 4343080 M19.90 neck, will restart meloxicam, nl kidney function 05/18 Insomnia 590024817 G47.0 0 continue ambien Neck pain 35591774 M54.2 change to soma, no benefit form flexeril Anxiety 66203448 F41.9 use as needed a lot of stress [id number] Main Office [address] [address] [place] [address] 09/05/2019 12:54:15 09/05/2019 13:31:25 Acute pelvic pain 999630014 R10.2 R/o rupture ovarian cyst , appendicit is. CBC ordered. PT. is to go to the ER if pain becomes worse, nausea and vomiting and fever occur. [id number] Miguel Bustos PA-C [facility] [address] [address] [place] [address] 12/05/2019 08:34:21 12/05/2019 10:59:23 COVID-19 399249002 U07.1 is [employer] employee - dx'd + on 11.21.19 Counseling 489740829 Z71 .9 Health advice, education or counseling done for COVID 19 Cough 41894816 R05 likely post-viral cough, but unsure could be early pna settling in - see below re: empiric tmt Pneumonia 942476495 J18. 9 recommend probiotics while on abx [id number] Nelda JorgeJoshua jacobo Main Office [address] [address] [place] [address] 03/07/2020 09:07:33 03/07/2020 10:07:07 Adult health examination 977884158 Z00.00 all screening is utd, starting WW, gained weight, Gastroesop hageal reflux disease 204584331 K21.9 continue meds Osteoarthritis 466438323 M19.90 meloxicam 7.5mg not helping, will increase to 15mg and check labs Insomnia 266862073 G47.0 0 very poor sleep, lots of worrym, treat with lorazepam Fatigue 15936832 R53.83 check labs Body mass index 30+ - obesity 086027833 E66.9 Z68.35 work on diet and exercise and sleep [id number] Nelda centeno [facility] [address] [facility] [address] [place] [address] 06/03/2020 07:57:41 06/03/2020 12:05:56 Insomnia 160538890 G47.00 very poor sleep, see HPI. will tx with ambien, pt to tell to watch her first few nights after taking and pt knows to avoid any early driving or tasks after taking, worked in past, use for 3-4 nights to reset sleep then as needed Arthritis 6139575 M19.90 neck, will refill meloxicam, nl kidney function 05/18 Gastroesop hageal reflux disease 203361856 K21.9 continue meds. help [id number] Shameka Lazo Main Office [address] [facility] [address] [place] [address] 06/16/2021 08:55:47 06/16/2021 10:03:34 Adult health examination 189653346 Z00.00 Pt is in good general health. Social and family history reviewed. Immunizati ons reviewed, advised to get shingles vaccine. She is upt to date on dental and eye providers, mammogram up to date, colon up to date, Reviewed diet and exercise. Gastroesop hageal reflux disease 381207277 K21.9 continue meds, pt has has EGD in the past, had a Shatski ring,omepr azole working Osteoarthritis 041054962 M19.90 having bilat knee replacemen ts Insomnia 511411235 G47.0 0 pt is using 10 mg of zolpidem as the 5 mg does not help., note to Dr Lundy Body mass index 30+ - obesity 132005318 E66.9 Z68.35 pt has lost 10 lbs Seasonal a llergic rhinitis 874440049 J30.2 Hyperglycemia 38823807 R 73.9 [id number] John Bella MD [facility] [address] [facility] [address] [place] [address] 02/13/2022 09:54:22 02/13/2022 11:10:53 Acute conjunctivitis 61249161 H10.30 Possibly viral but will cover for a bacterial process. Call inb/worse. [id number] Nelda centeno [facility] [address] [facility] [address] [place] [address] 04/01/2022 09:26:37 04/01/2022 10:49:50 COVID-19 514494967 U07.1 pt is interested in Paxlovid, I will treat as below, pt to isolate thorugh then 5 then mask everywhere through day 10 and hold flonase and cut ambien in half while on paxlovid [id number] Diana Bridgette Main Office [address] [facility] [address] [place] [address] 06/17/2022 08:44:48 06/17/2022 09:53:46 Adult health examination 494909666 Z00.00 Pt is in good general health. Social and family history reviewed. Immunizati ons reviewed, advised to get shingles vaccine. She is upt to date on dental and eye providers, mammogram up to date, colon up to date, Reviewed diet and exercise, will try changing exercise and track food, if no loss to return to discuss Gastroesop hageal reflux disease 243879390 K21.9 continue meds, pt has has EGD in the past, had a Shatski ring,omepr azole working Insomnia 412125024 G47.0 0 Will try trazodone in place of zolpidem, ok for melatonin and magnesium Body mass index 30+ - obesity 350758330 E66.9 Z68.35 will try tracking food and change exercise; if not better consider wegovy Hyperglycemia 00001739 R 73.9 normal last check less than a year ago [id number] Shameka Lazo Main Office [address] [facility] [address] [place] [address] 07/22/2022 09:25:37 07/22/2022 10:25:47 Body mass index 40+ - severely obese 985859657 Z68.41 pt with obesity and failure with diet and exercise, will try saxenda if approved by insurance, if not approved try Dr Merino and consider contrave. Insomnia 757415217 G47.0 0 Will try trazodone in place of zolpidem, ok for melatonin and magnesium. Doing well with trazodone Morbid obesity 081342439 E66.01 [id number] Miguel REYESC Main Office [address] [address] [place] [place] [address] 12/24/2022 09:08:59 12/24/2022 10:13:52 Edema of lower extremity 175909340 R60.0 likely dependent, no h/o chfrec elevation, consider comp socks 15-20mmHG amazonsee below Peripheral venous insufficiency 86540574 I87.2 will get vein specialist eval Left lower quadrant pain 544627099 R10.32 no dysuria, but pt states she did not have dysuria c her last uti yrs agodipstic k negative, will send c&s for confirmati onmay very well be d/t mild constipati on - rec colace qd Impaired f asting glycemia 856879506 R73.01 [id number] BLAYNE BUCHANAN Main Office [address] [address] [place] [address] 04/08/2023 14:15:11 04/08/2023 14:37:04 Blood in urine 09397514 R31.9 -onset this morning of 2-3 episodes with blood in the urine-asso cated lower back pain and bladder pressure-d enies of any fever, chills, dysuria-ne gative CVA tenderness Acute urin esha tract infection 358263332 N39.0 -urine dipstick revealed large amounts of leukocytes and blood in urine, negative CVA tenderness -will provide x7 day course of macrobid and discussed conservati ve measuremen ts-will have pt monitor for any new or worsening symptoms [id number] BLAYNE BUCHANAN Main Office [address] [facility] [address] [place] [place] [address] 08/19/2023 08:45:09 08/19/2023 09:30:53 Adult health examination 317889885 Z00.00 Health Maintenanc e FemaleA) Patient was counseled on healthy diet, exercise and nutrition due to BMI of 24.8 B) ScreeningL ast Mammogram: start at age 50 stop at 72Date: 03/11/2023 Result: BIRADS-1Ne xt: 03/2024 Last Pap smear: start at age 21 to age 65Date: 4Resu lts: negativeNe xt: Last Colonoscop y: start at age 45-75Date: 01/18/2020 Result: diverticul osis in left colonNext: 12/2024 Last DEXA scan:Date: due at 63 C) Vaccines:I nfluenza:T dAP: 12/23/2016 Zoster: declinedPC V13: due at 65PWJS06: due at 64COVID: 05/15/2020, 06/05/2020, 02/25/2021 D) Routine blood work completed by facility maintenance mechanic, will requestE) Updated patient's history RTC in one year for annual exam or sooner if any acute complaints Gastroesop hageal reflux disease 949355718 K21.9 continue meds, pt has has EGD in the past, had a [employer] ringomepra zole working Insomnia 462027799 G47.0 0 was on zolpidem, pt trialled trazadone- did not find the trazadone effective, requests to go back on zolpidem as needed Body mass index 30+ - obesity 161505503 E66.9 Z68.35 has been taking semaglutid e 20 units a week since end of Jun, 2023-has lost 12lb since end june-obtain s medication from an [employer] [employer], located in [place] Seasonal a llergic rhinitis 960158211 J30.2 refill per pt request Preventive dental procedure 59031812 Z01.20 has a dental procedure in september, Fatigue 49200968 R53.83 [id number] BLAYNE BUCHANAN Main Office [address] [facility] [place] [address] 10/27/2023 14:16:34 10/27/2023 14:46:46 Low back pain 840191244 M54.50 x4-5 days of left low back pain-himanshu ers include certain movements; bending forward, twisting, and tenderness to palpation- no tenderness along the spinal process-sander ibanez muscular in orgin-disc ussed conservati ve measuremen ts and will refer to PT Body mass index 30+ - obesity 380496358 Z68.30 E66.9 has been taking semaglutid e 20 units a week since end of Jun, 2023-obtai ns medication from an online company- [employer], located in [place]-[facility] recheck lab work Increased frequency of urination 128774582 R35.0 was seen at urgent care 2 weeks ago for UTI and completed antibiotic course-pt notes her urine was not sent out for culture so unsure if antibiotic covered Health Concerns Section Related Observation LastModified by Organization Detai ls LastModified Time None Recorded Concern Status LastModified by Organization Details LastModified Time None Recorded Advance Directives Directive Y: HCP Payers Encounter Date Sequence Insurance Name Policy Number Policy Weaver Covered Member ID Weaver Member ID Guarantor Name 07/22/2022 1 [facility]) [id number] Danika M Bozoglos [id number] Danika Bozoglos 12/24/2022 1 [facility]) [id number] Danika M Bozoglos [id number] Danika Bozoglos 04/08/2023 1 [facility]) [id number] Danika M Bozoglos [id number] Danika Bozoglos 08/19/2023 1 [facility] [id number] 5 Danika M Bozoglos [id number] Danika Bozoglos 10/27/2023 1 [facility]) [id number] 5 Danika M Bozoglos [id number] Danika Bozoglos Notes Date Note Type Note Provider Name and Address Organization Details Recorded Time 07/22/2022 text/html Followup on slee p, started trazodone, sleeping better with this, would like to continue using prn.Wt check, would like consider med as not having success with diet and exercise. Has seen admin dir and not much loss with this help. She is less active as recent knee surgery. Pt has HNE and will need to see endocrine and wt loss specialist for meds. Will try trisha to see if this might be approved. Given Dr Merino's name as a resource. Shameka raines [facility] [place] 07/24/2022 13:13:54 12/24/2022 text/html Patient reports 6 weeks with intermittent bilateral calf and ankle edema. More notable at end of day. Denies any shortness of breathno h/o chf also c/o mild, occ llq pain x 2 wksno h/o kidney stones+ h/o lbpno dysuria, hematuriano constipation/strain ing Miguel Bustos PA-C [address] [address], [place], [id number], [facility] [place] 12/24/2022 10:27:45 04/08/2023 text/html Danika is a 57yr old F who presents for blood in her urine- onset this morning. Reports of having to urinate x2-3 times today and each time having noticeable blood in urine. Pt reports of having lower back and abdominal pressure. Denies of any dysuria, fever, chills, n/v/d. Reports she had kidney stones in the past but notes that these symptoms are more similar to previous UTI. Pt notes that the last time she had a UTI back in 2017 she was also experiencing similar symptoms. BLAYNE BUCHANAN [address] [address], [place], [id number], [facility] [place] 04/08/2023 21:11:03 08/19/2023 text/html Danika is a 58yr old F who presents for annual physical exam. Complaints: none Is not using ASA. 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 Reports she was recently treated for a UTI at urgent care about 2 weeks ago. Has noticed of having left sided low back pain and increase urinary frequency over the last few days. Denies of any known trauma to the area. No recent strenuous exercises or heavy lifting. low back pain triggered with certain movements, relief with rest. Denies of any hematuria, fever/chills, dysuria, pelvic or abdominal pain. BLAYNE BUCHANAN [address] [address], [place], [phone], [facility] 10/27/2023 22:02:42 OBGyn Episode No OBEpisode recorded.
--- OUTSIDE RECORDS SUMMARY | 2024-03-27 18:31 | XMS_ITS ---
Author Organization [facility] Address [address] [place] [address] Care Team Providers Care [employer] Name Role Phone Luciana Ibarra Primary Care Provider Unavail able Elvis Prakash Unavailable [phone] Allergies Allergen (clinical drug ingredient) Drug/Non Drug Allergy documented on EMR Reaction Allergy Type Onset Date Status sulfamethoxazole / trimethoprim Bactrim rash, hives Drug Allergy Active Adhesive rash Allergy Active codeine Codeine nausea and vomiting Drug Allergy Active Penicillin rash, hives Drug Allergy Acti ve vibegron Gemtesa red face Drug Allergy Active REASON FOR VISIT pcp 05/2023, Foot pain Medications Medication SIG (Take, Route, Frequency, Duration) Notes Start Date End Date Status Doxycycline Monohydrate 100 MG 1 capsule Orally Twice a day for 5 days 01/19/2023 Not-Taking Omeprazole 20 MG 1 capsule Orally Onc e a day Active ProAir HFA Unknown Trospium Chloride ER 60 MG Oral for 30 Days Active flonase 50 mcg/act A ctive Glucosamine Chond Complex/MSM - Orally Unknown Aspir-81 81 MG 1 tablet Orally Once a day Unknown Social History Tobacco Use: Social History [...] less (1 point) Points 1 Interpretation Negative Vital Signs Blood pressure systolic 98 mm Hg 03/14/19 25 Blood pressure diastolic 74 mm Hg 025 Height 5ft 4in in 03/14/2024 Weight 183 lbs 03/14/2024 BMI 31.41 kg/m2 03/14/2024 Encounters Encounter Location Date Provider Diagnosis [facility] [address] [place] [address] 03/14/2024 Elvis Prakash Pain in right foot M79.671 and Tailor's bunion of right foot M21.621 Assessments Encounter Date Diagnosis (ICD Code) Assessment Notes Treatment Notes Treatment Clinical Notes Section Notes 03/14/2024 Pain in right foot (ICD-10 - M79.671) 03/14/2024 Tailor's bunion of right foot (ICD-10 - M21.621) Acute problem, Uncomplicated (3) Plan Of Treatment Next Appt Details Follow Up: prn, Reason: Progress Notes * Danika CABRERA MDOB: [birth year] (58 yo F)Acc No.[id number]:03/14/2024 Progress Note Patient:?TOMDanika GAMA David Provider:?Elvis Prakash D.P.M. :1965???Age:58 Y???Sex:Female D ate:03/14/2024 [facility] [address] [facility] [place] [id number] Pcp:Luciana Ibarra Subjective: * Chief Complaints: * ???Pcp 05/2023Foot pain * HPI: ???Foot Pain:?Nature:?aching, tenderness, throbbing.?Location:?5th MTH right.?Duration:?several weeks.?Onset:?activity.?Course:?worse.?Aggravated:?any pressure, standing, walking.?Treatments:?rest/alter normal daily activity.?Severity/Quality:?moderate.? * ROS:?General/Constitutional:?Nausea?denies.?Vomiting?denies.?Hunger Thirst?denies.?Loss appetite?denies.?Chills?denies.?Fatigue?denies.?Fever?denies.?Night Sweats?denies.?Unexplained weight loss?denies.?Unexplained weight gain?denies.?HEENTM:?Dentures?denies.?Dizziness?denies.?Glasses/contacts?admits.?Retinopathy?de nies.?Blurred/double vision?denies.?TMJ?denies.?Discharge/drainage?denies.?Implants?denies.?Sore throat?denies.?Dental implants?denies.?Hard of hearing ?denies.?Difficulty chewing/swallowing/speaking?denies.?Nose bleeds?denies.?Sore mouth?denies.?Respiratory:?On Oxygen?denies.?Pneumonia/pleurisy?denies.?Bronchitis?denies.?Emphysema?denies.?C oughing?denies.?Cough blood?denies.?Shortness of breath?denies.?Wheezing?denies.?Cardiovascular:?Pacemaker?denies.?MVP?denies.?WPW?denies.?CHF?denies.?Heart attack?denies.?Septal defect?denies.?Rapid beat?denies.?Chest pain ?denies.?Atrial Fib.?denies.?Murmur/Palpitations?denies.?Gastrointestinal:?Hemorrhoids?denies.?Stomach/Abdominal pain?denies.?Dark blood stool?denies.?Irritable bowel ?denies.?Constipation?denies.?Diarrhea?denies.?Hematology:?Swelling?denies.?Clots?denies.?Varicose Veins?admits.?Bruising?denies.?Bleeding problem?denies.?Genitourinary:?Blood urine?denies.?Frequent/Painfu/urination/bladder control?denies.?Kidney stones?denies.?Infection (UTI)?denies.?Nephropathy?denies.?sex trans dis (STD)?denies.?Prostate?denies.?Musculoskeletal:?Hammertoes?admits.?Bunions?denies.?Back Pain?admits.?Muscle Cramps/ Resting?denies.?Muscle cramps / walking?denies.?Generalized aches and pains?denies.?Weakness?denies.?Integ.:?Mitchell?denies.?Scars?admits.?Corns/calluses?admits.?Ingrown nails?admits.?Painful nails?denies.?Open Sores?denies.?Rashes?denies.?Neurologic:?Difficulty sleeping?denies.?Brain disorder?denies.?Numbness?denies.?Balance trouble?denies.?Confusion?denies.?Fainting/blackouts?denies.?Tingling?denies.?Tr emors?denies.? * Medical History:? * Surgical History:?cholecyste ctomy 2001ankle surgery- Left, due to Fracture 05/2010removal of pins to left ankle 2011dilatation of esophagas gall bladder right knee replacement 08/14/2021left knee replacement 2arthroscopic knee surgery 06/30/22 * Hospitalization/Major Diagno stic Procedure:?childbirth x2 * Family History:?Mother: dece ased, diagnosed with Other malignant neoplasm of unspecified site.?Father: , stroke, diagnosed with Unspecified essential hypertension, Family history of arthritis. Siblings: Heart attack, diagnosed with Other malignant neoplasm of unspecified site.?Spouse: alive.? * Social History:?Tobacco Use:?Tobacco use other than smoking?Are you an other tobacco user??No ?Tobacco Control (Standard)?Tobacco use:?Nonsmoker ?Additional Findings: Tobacco non-user?Current nonsmoker ???Drugs/Alcohol:?Drugs?Have you used drugs other than those for medical reasons in the past 12 months??No ???Miscellaneous:?Caffeine: yes, 2-3 cups per day tea. ?Children: yes, 2. ?Exercise: yes, bike riding, swimming, walking. ?Living with: spouse. ?Marital status: . 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 ???Drug/Alcohol:?AUDIT-C (Standard)?Did you have a drink containing alcohol in the past year??Yes ?How often did you have six or more drinks on one occasion in the past year??Never (0 point) ?How many drinks did you have on a typical day when you were drinking in the past year??1 or 2 drinks (0 point) ?How often did you have a drink containing alcohol in the past year??Monthly or less (1 point) ?Points?1 ?Interpretation?Negative * Medications:?Takingflonase 5 0 mcg/act nasal spray Trospium Chloride ER 60 MG Capsule Extended Release 24 Hour Oral Omeprazole 20 MG Capsule Delayed Release 1 capsule Orally Once a day Taking flonase 50 mcg/act nasal spray Taking Trospium Chloride ER 60 MG Capsule Extended Release 24 Hour Oral Taking Omeprazole 20 MG Capsule Delayed Release 1 capsule Orally Once a day Not-Taking/PRNDoxycycline Monohydrate 100 MG Capsule 1 capsule Orally Twice a day Not-Taking/PRN Doxycycline Monohydrate 100 MG Capsule 1 capsule Orally Twice a day UnknownProAir HFA Aspir-81 81 MG Tablet Delayed Release 1 tablet Orally Once a day Glucosamine Chond Complex/MSM - Tablet Orally Medication List reviewed and reconciled with the patientUnknown ProAir HFA Unknown Aspir-81 81 MG Tablet Delayed Release 1 tablet Orally Once a day Unknown Glucosamine Chond Complex/MSM - Tablet Orally Medication List reviewed and reconciled with the patient * Allergies:?Gemtesa: red face Penicillin: rash, hives - AllergyBactrim: rash, hives - AllergyCodeine: nausea and vomiting - AllergyAdhesive: rash - Allergyyes[Allergies Verified] Objective: * Vitals:?Ht: 5ft 4in, Wt:183, BMI:31.41, Shoe size: 9-9.5, BP:98/74mm Hg, Ht-cm: 162.56 cm, Wt-k.01 kg. * Examination: ???General Examination: ?GENERAL APPEARANCE:?Reveals a pleasant, alert, well-nourished, well- developed, well hydrated individual, who demonstrates proper attention to hygiene/body habitus, and is in no acute distress, Pt serves as own?historian for office visit today.?ORIENTED:?person, place, and time.?Neurological: ?SENSORY:?Neurological exam reveals intact sensorium, pain sensation normal, vibration sensation intact, pinprick sensation is normal in the lower extremities, Pt denies, anesthesia, burning, paresthesia, tingling, B/L.?TINEL'S COMPRESSION:? Negative, Lateral sural nerve distribution, Right.?DEEP TENDON REFLEXES:?Achilles, 2/4, B/L.?Vascular: ?DP PULSES (B):?3/4, B/L.?PT PULSES (B):?3/4, B/L.?CAPILLARY FILL TIME:?immediate, all digits, B/L.?TROPHIC CONDITION-TEXTURE/ELASTICITY/TURGOR/HAIR GROWTH (B):?normal, B/L.?TEMPERTURE GRADIENT (C):?warm to cool, proximal to distal, B/L.?PIGMENTATION:?normal, B/L.?EDEMA (C):?absent, B/L.?Dermatologic: ?SKIN FINDINGS:?Skin exam reveals normal texture, elasticity, and turgor. There are no masses. The interspaces are clear.?HYPERTROPHIC LESION:?Porokeratotic skin lesion sub 5th MTH and mid plantar aspect heel right foot.?Orthopedic: ?MUSCLE STRENGTH:?5/5 all groups in a symmetrical fashion , B/L.?TAILOR'S BUNION:?Prominent, painful, with inflammation, 5th MTH/MPJ, RIGHT.?Neuroma Pain: ?PALPATION:?No interspace pain noted on palpation.? Assessment: * Assessment: 1.?Pain in right foot - M79. 671 (Primary)???2.?Tailor's bunion of right foot - M21.621???Notes :Acute problem, Uncomplicated (3)??? Plan: * Treatment: * Procedure Codes:? * Preventive Medicine:? ??Counseling:?Discussion:?-13: Office or other outpatient visit for the evaluation and management of an established patient, which required a medically appropriate history and/or examination and LOW level of DECISION MAKING for: 1 STABLE ACUTE UNCOMPLICATED PROBLEM, 2 OR MORE MINOR PROBLEMS, OR 1 STABLE CHRONIC PROBLEM, THAT POSE(S) A LOW RISK FOR MORBIDITY/MORTALITY. The visit on the day of the encounter encompassed interpreting the data and educating the patient as to the nature of their condition, treatment options available according to their individual PMH, meds, allergies, and overall health/living conditions, as well as any potential risks or complications that may occur from a failure to adhere to, and participate in, the recommended course of therapy. The discussion included a complete verbal, and/or written explanation of the examination results, any x-rays taken, the proposed diagnosis, and outline of the treatment plan. A schedule for future care needs was also explained. The patient verbalized an understanding of the instructions at this time and agreed to be an active participant in their treatment. If the patient should think of any questions or concerns after the visit, I have encouraged the patient to call the office,.?P.R.I.C.E.:?The patient was counseled on the use of P.R.I.C.E. and NSAIDS (if well tolerated) to aid in the recovery from their painful condition.?Podiatric Surgery Counseling:?Surgical procedures to treat the patients foot problem were discussed. We reviewed the risks of the procedure (described below) vs not having the procedure (persistent pain, deformity, risk for skin ulceration/infection, loss of toe). We discussed the potential procedure complications including, but not limited to: pain, swelling, bleeding, scarring, numbness, infection, delayed/non healing, floppy/unstable/shorthened toe, recurrence, failure of the procedure, overcorrection leading to plantarflexed/downward positioned toe, recurrence, need for further surgery, as well as the possibility for loss of the toe itself. We discussed the use of IV/Local anesthesia, and the usual post-op course for healing. No guarentees were given. The patient verbally indicated a full understanding of the above conversation, and any other of their questions were answered to their satisfaction.?Shoe Gear Counseling:?The patient and I reviewed the types of shoes they should be wearing. My recommendation included obtaining a well-fitted shoe with a good supportive, non-foldable nor twistable sole, plenty of toe/room for the forefoot, and proper arch support. Based on todays examination, I recommended the patient look for new shoes, by having their feet professionally measured. We discussed that generally the best time of the day for a shoe fitting is the afternoon. Different shoes types and brands to best match the patients occupation and vocation were discussed. Specific brand selection will be up to the patient, their individual foot condition/deformities, and fit. The patient and I reviewed the standard new shoe break in period by wearing them for a few hours a day while checking for redness or sores as wear time is increased. The patient verbally confirmed to understanding the information discussed.? * Follow Up:?prn * Images: * Sign off status: Completed true * Provider:?Elvis Prakash D.P.M. Date:?03/01 Generated for Printi ng/Faviviang/eTransmitting on:?03/27/2024 06:30 PM EST History and Physical Notes * HPI (History of Present Illness) Category Sub-Category Detail Notes Category Not es Foot Pain Nature: aching, tenderness, throbbin g Location: 5th MTH right Duration: several weeks Onset: activity Course: worse Aggravated: any pressure, standi ng, walking Treatments: rest/alter normal da tomer activity Severity/Quality: moderate Examination Category Sub-Category Detail Notes Category Not es Neuroma Pain PALPATION: No interspace pain noted on palpation Neurological SENSORY: Neurological exa m reveals intact sensorium, pain sensation normal, vibration sensation intact, pinprick sensation is normal in the lower extremities, Pt denies, anesthesia, burning, paresthesia, tingling, B/L TINEL'S COMPRESSION: Negative, Lateral s ural nerve distribution, Right DEEP TENDON REFLEXES: Achilles, 2/4, B/L Dermatologic SKIN FINDINGS: Skin exam reveal s normal texture, elasticity, and turgor. There are no masses. The interspaces are clear HYPERTROPHIC LESION: Porokeratotic skin lesion sub 5th MTH and mid plantar aspect heel right foot Orthopedic TAILOR'S BUNION: Prominent, pain ful, with inflammation, 5th MTH/MPJ, RIGHT MUSCLE STRENGTH: 5/5 all groups in a symmetrical fashion , B/L General Examination GENERAL APPEARANCE: Reveals a pleasant, alert, well- nourished, well-developed, well hydrated individual, who demonstrates proper attention to hygiene/body habitus, and is in no acute distress, Pt serves as own historian for office visit today ORIENTED: person, place, and t ze Vascular DP PULSES (B): 3/4, B/L PT PULSES (B): 3/4, B/L CAPILLARY FILL TIME: immediate, all digi ts, B/L TEMPERTURE GRADIENT (C): warm to cool, p roximal to distal, B/L TROPHIC CONDITION-TEXTURE/ELASTICITY/TURGOR/HAIR GROWTH (B): normal, B/L EDEMA (C): absent, B/L PIGMENTATION: normal, B/L
== END 2024-03-27 13:58 | disposition home or self-care (01) ==
LOC: HO.MAMMO 13:57
PROVIDERS: PCP Student in an Organized Health Care Education/Training Program; Visit Provider Student in an Organized Health Care Education/Training Program
DX: Z12.31 Encounter for screening mammogram for malignant neoplasm of breast (principal)
CPT/HCPCS: 77063; 77067

== ENCOUNTER → 2024-03-27 14:15 | Outpatient (BNV) | payer OTHER, SELFPAY | PROVIDERS: PCP Student in an Organized Health Care Education/Training Program; Visit Provider Internal Medicine | DX: Z12.31 Encounter for screening mammogram for malignant neoplasm of breast (principal) | CPT/HCPCS: 77063; 77067 ==

== ENCOUNTER 2024-11-06 08:51 | Outpatient (AMB) | payer OTHER, SELFPAY ==
[2024-11-06 08:57] VITALS: BP 112/58; PULSE 77; BMI 31.9
--- NOTE | 2024-11-06 08:57 | A.OFFVIS_ITS ---
Vital Signs 11/06/24 08:57 Height 5 ft 4 in Weight 186 lb BMI 31.9 BP 112/58 L Blood Pressure Location Rt radial Position Sitting Pulse 77 Intake Visit Reasons: rediscuss genetic results (VUS now + high risk) Intake Note: Patient here today to re-discuss genetic testing. Patient c/o: no concerns. Mammogram scheduled 04-02-2025. Ultrasonic Hand Solderer Required: No Accompanied by: Self / Same As Patient Allergies codeine Allergy (Unknown, Uncoded 11/06/24 08:58) vomiting, nausea penicillin Allergy (Unknown, Uncoded 11/06/24 08:58) hives, swelling sulfa Allergy (Unknown, Uncoded 11/06/24 08:58) hives, swelling Medication List - Last Reconciled 11/06/24 by Lars Ortiz MD celecoxib 200 mg PO DAILY erythromycin 1 appl ophthalmic (eye) Q4H 7 days fluticasone propionate 50 mcg/actuation 2 sprays intranasal DAILY omeprazole 20 mg PO DAILY trospium ER 60 mg PO QAM zolpidem 10 mg PO BEDTIME PRN HPI HPI rediscuss genetic results (VUS now + high risk): Details: [age] year female who has a family history of pancreatic cancer . I had met here in 2022 so I sent her for genetic testing with [employer] because of this family history. This was negative for any significant genetic mutations at that time However, this report had been amended by [employer] a CHEK2 mutation. We therefore called her to the office to updated about this new report. She denies any complaints at this time. Her menarche was at the age of 10. Her 1st was the age of 32. She had 2 pregnancies. She had menopause at age of 49. She describes a cousin from her mother's side who had breast cancer at the age of 45 . [facility] Medical History (Updated 11/06/24 @ 09:10 by Lars Ortiz MD) CHEK2 gene mutation positive Family history of pancreatic cancer Family history of breast cancer GERD (gastroesophageal reflux disease) Social History Alcohol intake: never Patient Tobacco Use Status: Never used Tobacco Review of Systems Const Denies chills and Denies fever(s) Card Denies chest pain, Denies dyspnea and Denies dyspnea on exertion Resp Denies cough, Denies dyspnea and Denies dyspnea on exertion GI Denies hematochezia and Denies change in bowel habits Denies hematuria Musc Denies back pain and Denies limited range of motion Neuro Denies focal weakness and Denies convulsions Psych Denies depression and Denies mood swings Physical Exam Vital Signs: Last Vital Signs Pulse 77 11/06/24 08:57 BP 112/58 L 11/06/24 08:57 BMI result Body Mass Index 31.9 Const General: comfortable and no acute distress Orientation/consciousness: patient oriented x3 Neck Neck: Yes no lymphadenopathy Resp Auscultation: clear to auscultation bilaterally Cardio Rhythm: regular rhythm GI Palpation (GI): Soft to palpation, nontender and no guarding Neuro General: patient oriented x3 Assessment & Plan Assessment & Plan (1) CHEK2 gene mutation positive: Code(s): Z15.89 - Genetic susceptibility to other disease Category: Medical Plan: She tested positive for the CHEK2 gene mutation. This puts her at high risk for breast cancer than average Her breast Cancer risk up to the age of 80 is about 20-31% compared to 10.8% for the general population. It is recommended for her to undergo I will therefore schedule her for this MRI She will see me in the office every 6-- 12 months for breast examination. She seems to understand the plan well. I will see her in the office in about 6 months. Orders: Orders MR breast BI wo/w con Today Z15.89 - Genetic susceptibility to other disease Coding Level of Care Code Est Pt Level 3 (63914) Diagnoses CHEK2 gene mutation positive Z15.89
--- OUTSIDE RECORDS SUMMARY | 2024-11-06 09:53 | XMS_ITS | Clinical Summary ---
Author Organization [facility] 299 [facility] Address [address] [place] [address] Phone Care Team Providers Care Firer Powerhouse Name Role Phone Luciana Ibarra MD Primary Care Provider [phone] Allergies Active Allergy Reactions Criticality Noted Date Comments Codeine 10/11/2024 Vibegron 10/11/2024 Penicillins 10/11/2024 Sulfa (Sulfonamide Antibiotics) 09/29 Medications clindamycin (CLEOCIN) 300 mg capsule Take 1 capsule (300 mg total) by mouth 4 (four) times a day. Active EPINEPHrine (EpiPen 2-Rodrigo) 0.3 mg/0.3 mL injection Inject 0.3 mL (0.3 mg total) into the thigh if needed for anaphylaxis. Active fluticasone propionate (FLONASE) 50 mcg/actuation nasal spray Administer 1 spray into each nostril 1 (one) time each day. Shake gently. Before first use, prime pump. After use, clean tip and replace cap. Active omeprazole (PriLOSEC) [address] capsule Take 1 capsule (20 mg total) by mouth 1 (one) time each day. Do not crush or chew. Active triamcinolone (KENALOG) 0.1 % cream Apply topically 2 (two) times a day. Active trospium 60 mg capsule,extend ed release 24hr Take 1 capsule (60 mg total) by mouth 1 (one) time each day. Active zolpidem (AMBIEN) 10 mg tablet Take by mouth at bedtime as needed for sleep. Active trospium (SANCTURA) 20 mg tablet Take 3 tablets (60 mg total) by mouth 2 (two) times a day. 08/13/20 25 Discontinu ed(Entered in Error) Encounters Date Type Department Care Team Description 10/11/2024 Telephone Gastroenterology - 299 [address] [address] [facility] [address] [place] [address] Nitish Calderon MD from Last 3 Months Social History Tobacco Use Types Packs/Day Years Used Date Smoking Tobacco: Never Assessed Comments Unknown Sex and Gender Information Value Date Recorded Sex Assigned at Not on file Legal Sex Female 11:51 AM EST Gender Identity Not on file Sexual Orientation Not on file Plan of Treatment Health Maintenance Due Date Last Done Comments Breast Cancer Screening 1965 DTaP,Tdap,and Td Vaccines (1 - Tdap) 06/05/1982 Cervical Cancer Screening: P ap Smear 06/05/1984 Pneumococcal Vaccine: 50+ Ye ars (1 of 1 - PCV) 06/05/2013 Zoster Vaccines (1 of 2) 06/05/2013 COVID-19 Vaccine ( - 2023-2 5 season) 2023 Depression Screening 03/01/2024 Colorectal Cancer Screening: Colonoscopy 10/11/2024 HIV Screening 10/11/2024 Hepatitis C Screening 10/11/2024 Social Influencers of Health Screening 10/11/2024 Influenza Vaccine (#1) 2024 RSV Immunization Adult Patie nts (1 - 1-dose 75+ series) 06/05/2038 HIB Vaccines Aged Out No longer eligi ble based on patient's age to complete this topic HPV Vaccines Aged Out No longer eligi ble based on patient's age to complete this topic Hepatitis A Vaccines Aged Out No long er eligible based on patient's age to complete this topic Hepatitis B Vaccines Aged Out No long er eligible based on patient's age to complete this topic IPV Vaccines Aged Out No longer eligi ble based on patient's age to complete this topic MMR Vaccines Aged Out No longer eligi ble based on patient's age to complete this topic Meningococcal ACWY Vaccine Aged Out N o longer eligible based on patient's age to complete this topic Meningococcal B Vaccine Aged Out No l onger eligible based on patient's age to complete this topic RSV Immunization Patients Un carol 20 months Aged Out No longer eligible b ased on patient's age to complete this topic Varicella Vaccines Aged Out No longer eligible based on patient's age to complete this topic Insurance [facility] [address] [place] [address] Care Teams Firer Powerhouse Relationship Specialty Start Date End Date Luciana Ibarra MD [address] [phone] PCP - General Internal Medicine 10/11/24
--- OUTSIDE RECORDS SUMMARY | 2024-11-06 09:53 | XMS_ITS | Patient Health Record ---
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 Name Role Phone Luciana Ibarra Primary Care Provider Unavail able Steffi Horton Unavailable [phone] Elvis Prakash Unavailable [phone] Allergies Allergen (clinical drug ingredient) Drug/Non Drug [...] Duration) Notes Start Date End Date Status Trospium Chloride ER 60 MG Oral; Duration: 30 Days Acti ve Omeprazole 20 MG 1 capsule Orally Onc e a day Active flonase 50 mcg/act A ctive Aspir-81 81 MG 1 tablet Orally Once a day Not-Taking Glucosamine Chond Complex/MSM - Orally Not-Taking ProAir HFA Active Doxycycline Monohydrate 100 MG 1 capsule Orally Twice a day; Duration: 5 days 01/19/2023 Not-Taki ng Social History Tobacco Use: Social History Observation [...] Problem Acquired hammer toe of right foot (1729085384316 105) Other hammer toe(s) (acquired), right foot (M20.41) Active confirmed Problem Acquired hammer toe of left foot (1412100721372 103) Other hammer toe(s) (acquired), left foot (M20.42) Active confirmed Problem Acquired hammer toe of right foot (9880558044027 105) Hammer toe of right foot (M20.41) Active confirmed Vital Signs Blood pressure diastolic 75 mm Hg 07/05/2024 Height 5ft 4in in 07/20/2024 Blood pressure systolic 98 mm Hg 07/05/2024 Weight 184 lbs 07/20/2024 BMI 31.58 kg/m2 07/20/2024 Encounters Encounter Location Date Provider Diagnosis [address] [address] 03/14/2024 Elvis Prakash Pain in right foot M79.671 and Tailor's bunion of right foot M21.[address] [address] 07/05/2024 Steffi Horton Ingrown nail L60.0 ; Tinea unguium B35.1 and Toe pain, right M79.[address] [address] 07/20/2024 Steffi Horton Hammer toe of right foot M20.41 ; Contracture of toe of right foot M20.5X1 and Pain in right toe(s) M79.[address] [address] 07/20/2024 Steffi Horton Assessments Encounter Date Diagnosis (ICD Code) Assessment Notes Treatment Notes Treatment Clinical Notes Section Notes 03/14/2024 Pain in right foot (ICD-10 - M79.671) 03/14/2024 Tailor's bunion of right foot (ICD-10 - M21.621) Acute problem, Uncomplicated (3) 07/05/2024 Tinea unguium (ICD-10 - B35.1) 07/05/2024 Ingrown nail (ICD-10 - L60.0) 07/20/2024 Hammer toe of right foot (ICD-10 - M20.41) 07/20/2024 Contracture of toe of right foot (ICD-10 - M20.5X1) 07/05/2024 Toe pain, right (ICD-10 - M79.674) 07/20/2024 Pain in right toe(s) (ICD-10 - M79.674) Plan Of Treatment Pending Test Test Name Order Date X ray : Foot, left 3V 10/27/2017 X ray : Foot, right 3V 11/17/2022 X ray : Foot, right 3V 07/20/2024 X ray : Foot, right 3V 10/27/2017 [id number] 12/08/2012 87810- Debride <25 sq cm 12/21/2012 90421- Debride <25 sq cm 03/31/2012 84881 I&D ABSCESS- SIMPLE,SINGLE 013 Next Appt Details Provider Name:Steffi finn, 12/20/2024 01:45:00 PM, [address] [place] [address], [phone], Provider Name:Steffi finn, 12/27/2024 01:45:00 PM, [address] [place] [address], [phone], Provider Name:Steffi finn, 01/02/2025 11:00:00 AM, [address] [place] [address], [phone], Provider Name:Steffi finn, 01/09/2025 11:00:00 AM, [address] [place] [address], [phone], Provider Name:Steffi finn, 01/23/2025 11:00:00 AM, [address] [facility], [place], [address], Insurance Providers Payer Name Payer Address Payer Phone Subscriber Number Group Number Insured Name Patient Relationship to Insured Coverage Start Date Coverage End Date [facility] [address] [place] [address] [id number] Danika Can Self - patient is [...]
== END 2024-11-06 09:10 | disposition home or self-care (01) ==
LOC: HO.HGS 08:51
PROVIDERS: PCP Student in an Organized Health Care Education/Training Program; Visit Provider Surgery
DX: Z15.89 Genetic susceptibility to other disease (principal)
CPT/HCPCS: 99213

== ENCOUNTER → 2024-11-06 08:51 | Outpatient (BNVA) | payer OTHER, SELFPAY | PROVIDERS: PCP Student in an Organized Health Care Education/Training Program; Visit Provider Surgery | DX: Z15.89 Genetic susceptibility to other disease (principal); Z80.3 Family history of malignant neoplasm of breast; Z13.89 Encounter for screening for other disorder ==

== ENCOUNTER → 2024-11-30 12:50 | Outpatient (BNV) | payer OTHER, SELFPAY | PROVIDERS: PCP Student in an Organized Health Care Education/Training Program; Visit Provider Internal Medicine | DX: Z15.89 Genetic susceptibility to other disease (principal); Z80.3 Family history of malignant neoplasm of breast | CPT/HCPCS: 77049 ==

== ENCOUNTER 2024-11-30 13:05 | Outpatient (REF) | payer OTHER, SELFPAY ==
--- NOTE | ~2024-11-30 | MR_ITS ---
EXAMINATION: MR BREAST WITHOUT AND WITH CONTRAST, BILATERAL CLINICAL INFORMATION: High risk MRI screening surveillance, strong family history of breast cancer including 2 aunts and some cousins. COMPARISON: Comparison is made with relevant prior imaging. TECHNIQUE: MR imaging of the breast was performed using T1, T2 and fat saturated techniques. Dynamic multiphase imaging was also performed after the administration of intravenous gadolinium contrast agent. Computer generated 3D reconstruction and enhancement kinetic analysis was ulitized by the radiologist in the interpretation of this examination. FINDINGS: Breast composition: Heterogeneous fibroglandular breast tissue Background parenchymal enhancement: Moderate LEFT BREAST: No suspicious enhancing masses or areas of non mass enhancement. No axillary or internal mammary adenopathy. RIGHT BREAST: 9 x 4 mm circumscribed oval enhancing mass lower outer breast series 1043 image 46/140 is not significantly changed from prior MRI 2019 and multiple prior mammograms dating back to 2019. No suspicious enhancing masses or areas of non mass enhancement. No axillary or internal mammary adenopathy. Limited views of the chest and abdomen are unremarkable. MR/MR breast BI wo/w con IMPRESSION: No MR specific evidence of malignancy. ASSESSMENT: LEFT BREAST: BI-RADS 1-Negative RIGHT BREAST: BI-RADS 2-Benign RECOMMENDATIONS: Yearly screening mammography Yearly Breast MRI screening surveillance. Electronically signed by: Ciarra Pritchett DO 12/01/2024 05:13 PM EDT
--- OUTSIDE RECORDS SUMMARY | 2024-11-30 14:32 | XMS_ITS | Clinical Summary ---
Author Organization [facility] [address] [facility] Address [address] [place] [address] Phone Care Team Providers Care Aluminum Pool Installer Name Role Phone Luciana Ibarra MD Primary Care Provider [phone] Allergies Active Allergy Reactions Criticality Noted Date [...] times a day. Active trospium 60 mg capsule,extende d release 24hr Take 1 capsule (60 mg total) by mouth 1 (one) time each day. Active zolpidem (AMBIEN) 10 mg tablet Take by mouth at bedtime as needed for sleep. Active Encounters Date Type Department Care Team Description 10/11/2024 Telephone Gastroenterology - [address] [place] [id number] Nitish Calderon MD from Last 3 Months Social History Tobacco Use Types Packs/Day Years Used Date Smoking Tobacco: Never Assessed Comments Unknown Sex and Gender Information Value Date Recorded Sex Assigned at Not on file Legal Sex Female 11:51 AM EST Gender Identity Not on file Sexual Orientation Not on file Plan of Treatment Upcoming Encounters Date Type Department Care Team (Late st Contact Info) Description 01/18/2025 9:[address] [facility] [address] [place] [phone] Wilda Pena MD [address] [address] Health Maintenance Due Date Last Done Comments Breast Cancer Screening 1965 Colorectal Cancer Screening: Colonoscopy 1965 DTaP,Tdap,and Td Vaccines (1 - Tdap) 06/05/1982 Cervical Cancer Screening: P ap Smear 06/05/1984 Pneumococcal Vaccine: 50+ Ye ars (1 of 1 - PCV) 06/05/2013 Zoster Vaccines (1 of 2) 06/05/2013 Depression Screening 03/01/2024 HIV Screening 10/11/2024 Hepatitis C Screening 10/11/2024 Social Influencers of Health Screening 10/11/2024 COVID-19 Vaccine (1 - 2023-2 5 season) 2024 Influenza Vaccine (#1) 2024 RSV Immunization Adult [...] patient's age to complete this topic Insurance [facility] Care Teams Aluminum Pool Installer Relationship Specialty [place] [address] [place] [phone] PCP - General Internal Medicine 10/11/24
--- OUTSIDE RECORDS SUMMARY | 2024-11-30 14:32 | XMS_ITS | Patient Health Record ---
Author Organization [facility] Address [address] [facility] [place] [address] Care Team Providers Care Cotton Farmer Name Role Phone Luciana Ibarra Primary Care Provider Unavail able Steffi Horton Unavailable [phone] Elvis Prakash Unavailable [phone] Allergies Allergen (clinical drug ingredient) Drug/Non Drug [...] Problem Acquired hammer toe of right foot (3711660763863 105) Other hammer toe(s) (acquired), right foot (M20.41) Active confirmed Problem Acquired hammer toe of left foot (1781080084159 103) Other hammer toe(s) (acquired), left foot (M20.42) Active confirmed Problem Acquired hammer toe of right foot (7052111225477 105) Hammer toe of right foot (M20.41) Active confirmed Vital Signs Blood pressure diastolic 75 mm Hg 07/05/2024 Height 5ft 4in in 07/20/2024 Blood pressure systolic 98 mm Hg 07/05/2024 Weight 184 lbs 07/20/2024 BMI 31.58 kg/m2 07/20/2024 Encounters Encounter Location Date Provider Diagnosis [address] [address] 03/14/2024 Elvis Prakash Pain in right foot M79.671 and Tailor's bunion of right foot M21.[address] [address] 07/05/2024 Steffi Horton Ingrown nail L60.0 ; Tinea unguium B35.1 and Toe pain, right M79.[address] [address] 07/20/2024 Steffi Horton Hammer toe of right foot M20.41 ; Contracture of toe of right foot M20.5X1 and Pain in right toe(s) M79.[address] [address] 07/20/2024 Steffi Horton Assessments Encounter Date Diagnosis [...] X ray : Foot, right 3V 10/27/2017 [id number] 12/08/2012 46034- Debride <25 sq cm 12/21/2012 96792- Debride <25 sq cm 03/31/2012 96308 I&D ABSCESS- SIMPLE,SINGLE 013 Next Appt Details Provider Name:Steffi finn, 12/20/2024 01:45:00 PM, [address] [place] [address], [phone], Provider Name:Steffi finn, 12/27/2024 01:45:00 PM, [address] [place] [address], [phone], Provider Name:Steffi finn, 01/02/2025 11:00:00 AM, [address] [place] [address], [phone], Provider Name:Steffi finn, 01/09/2025 11:00:00 AM, [address] [place] [address], [phone], Provider Name:Steffi finn, 01/23/2025 11:00:00 AM, [address] [facility], [place], [phone], Insurance Providers Payer Name Payer Address Payer Phone Subscriber Number Group Number Insured Name Patient Relationship to Insured Coverage Start Date Coverage End Date [facility] [address] [place] [id number] Danika Can Self - patient is [...]
== END 2024-11-30 13:06 | disposition home or self-care (01) ==
LOC: HO.MRI 13:05
PROVIDERS: PCP Student in an Organized Health Care Education/Training Program; Visit Provider Surgery
DX: Z15.89 Genetic susceptibility to other disease (principal)
CPT/HCPCS: 77049; A9585